=== PATIENT | female | born 1960 | race Caucasian/White ===

== ENCOUNTER → 2022-11-13 11:41 | Outpatient (CLI) | payer BC, SELFPAY ==
--- NOTE | ~2022-11-13 | CT_ITS ---
Non-contrast CT scan of the Abdomen Clinical indication: Umbilical hernia Technique: 2.5 mm axial scans were obtained through the abdomen without intravenous or oral contrast . Dose reduction technique was used on this scan by utilizing automated exposure control and iterativ e reconstruction technique. The dose-length product (DLP) was 755.01 mGy-cm. Findings: Images through the lung bases reveal no abnormalities. There is no evidence of renal or ureteral calculi. The kidneys and the ureters are nondilated. The liver, spleen, pancreas, gallbladder, and adrenals appear normal. There is no aortic aneurysm. Visualized bowel loops are unremarkable. No ascites. There is a large fat-containing umbilical hernia . Impression: Large fat-containing umbilical hernia. Reviewed, dictated and finalized at location . Impression: Large fat-containing umbilical hernia.
== END ==
PROVIDERS: PCP Internal Medicine; Visit Provider Surgery
DX: K42.9 Umbilical hernia without obstruction or gangrene (principal)
CPT/HCPCS: 74150

== ENCOUNTER 2022-11-24 09:23 | Outpatient (CLI) | payer BC, SELFPAY ==
--- NOTE | 2022-11-24 09:28 | ECG_ITS ---
Measurements Intervals [place] Rate: 54 P: 18 DC: 158 QRS: -14 QRSD: 111 T: 4 QT: 446 QTc: 426 Interpretive Statements SINUS BRADYCARDIA LOW QRS VOLTAGE IN PRECORDIAL LEADS [QRS DEFLECTION < 1.0 mV IN CHEST LEADS] CANNOT RULE OUT aNTERIOR MYOCARDIAL INFARCTION, PROBABLY OLD ABNORMAL ECG NO PREVIOUS ECG AVAILABLE FOR COMPARISON Electronically Signed On 11-24-2022 17:00:28 CDT by Drew Benitez M.D.
[2022-11-24 10:13] LABS: Basophils Percent Auto 0.8 % (0.2-1.2); Eosinophils Absolute Auto 0.1 K/mm3 (0-0.3); Eosinophils Percent Auto 2.7 % (0-4.4); Hematocrit 40.1 % (37.0-47.0); Hemoglobin 13.7 g/dL (12.0-15.0); Immature Granulocyte Absolute 0.01 K/mm3 (0.00-0.031); Immature Granulocyte Percent A 0.2 % (0-0.5); Lymphocytes Absolute Auto 1.62 K/mm3 (0.9-3.2); Lymphocytes Percent Auto 33.8 % (18.3-44.2); Mean Corpuscular HGB Conc 34.2 g/dl (32-36); Mean Corpuscular Hemoglobin 32.4 pg (26-34); Mean Corpuscular Volume 94.8 fl (80-100); Mean Platelet Volume 10.3 fl (7.4-10.4); Monocytes Absolute Auto 0.5 K/mm3 (0.1-0.6); Monocytes Percent Auto 9.6 % (2.6-8.5); Neutrophils Absolute Auto 2.5 K/mm3 (1.3-6.7); Neutrophils Percent Auto 52.9 % (45.5-73.1); Platelet Count Result 163 k/mm3 (150-375); Red Blood Count 4.23 M/mm3 (4.2-5.4); White Blood Count 4.8 K/mm3 (4.5-10.0)
[2022-11-24 10:45] LABS: Anion Gap 3 mmol/L (8-16); Blood Urea Nitrogen 13 mg/dL (7-17); Calcium 9.5 mg/dL (8.4-10.2); Carbon Dioxide 34 mmol/L (22-30); Chloride 99 mmol/L (98-107); Estimated Glomerular Filt Rate > 60; Glucose 93 mg/dL (65-110); Potassium 3.3 mmol/L (3.4-5.0); Sodium 136 mmol/L (137-145)
== END 2022-11-24 09:24 | disposition home or self-care (01) ==
PROVIDERS: Anesthesiology; PCP Internal Medicine; Visit Provider Obstetrics & Gynecology
DX: Z01.818 Encounter for other preprocedural examination (principal); I10 Essential (primary) hypertension; R00.1 Bradycardia, unspecified
CPT/HCPCS: 36415; 80048; 85025; 86850; 86900; 86901; 93005

== ENCOUNTER 2022-11-27 01:16 | Day surgery (SDC) | payer BC, SELFPAY ==
--- NOTE | 2022-11-19 15:03 | PC.NURSE ---
Report to the Outpatient Waiting Room, entrance under the green pavilion located off [facility], at time _0600_ on date _11/27/22__. Planned Procedure Time: _0730__. Time changes happen often and if your time is changed the preop area will call you the afternoon before. - You and your visitor will be asked to self-screen and do not enter if you have any COVID symptoms. - Only one visitor is requested with a max of two and NO children visitors are allowed at this time. - The patient visitor may be requested to leave or wait in car when not with patient due to distancing restrictions. - A mask is optional within the hospital at this time. Patients may have clear liquids (water, carbonated beverages, clear teas, apple juice) until 3 hours prior to surgery with a maximum of 20 ounces. Stop by 0430. - No food from midnight until time of surgery - Infants may have breast milk until 4 hours before surgery, formula 6 hours prior to surgery. - Children will be allowed to drink immediately following surgery. If applicable, please bring a bottle or sippy cup to assist with drinking. Juice, water, soda, and popsicles are readily available. For infants on formula, please bring formula the day of surgery. Pacifiers are allowed. Take the following medications with a SIP of water the morning of surgery: __none____ DO NOT STOP ANY OF YOUR OTHER PRESCRIPTION MEDICATIONS PRIOR TO SURGERY ?EXCEPT THE FOLLOWING Medications to discontinue per physician __Vitamins 3 days prior___ Date to take last dose Please no make-up, nail kazakh, hairspray, perfume, deodorant, or body powder the day of surgery. No jewelry (including any body piercings) or valuables the day of surgery, leave them at home. Please take a shower or bath the night before, or the morning of, surgery with an antibacterial soap. Wear comfortable, loose fitting clothing. Children are encouraged to wear pajamas. - Jewelry must be removed prior to entering the operating room. Rings and piercings that are not removed may be cut off. - The hospital will not accept responsibility for valuables. - Please leave all valuables, including medications, at home the day of surgery. If you are going home after surgery, a licensed truss driver helper must drive you home. - NO public transportation without another adult if you receive anesthesia. - We recommend that an adult stay with you for 24 hours following discharge. - We also recommend that you do not drive, make important decision, drink alcoholic beverages, or take any drugs that were not prescribed by your health care provider for at least 24 hours after your discharge time. For Pediatric surgeries, we recommend two adults accompany the child home. Follow any additional instructions given to you from your surgeon. If you or anyone in your household have experienced Covid symptoms in the past week, please notify your surgeon or the nurse liaison at the phone number below for possible testing. Telephone instructions given to __patient__and asked if any additional questions and then verbalized understanding. Patient advised to call surgeon office or pre surgery nurse liaison [phone] if any additional questions.
[2022-11-19 15:15] VITALS: BMI 45.2
--- NOTE | 2022-11-25 12:59 | PM.IMHP ---
H&P: HPI History of Present Illness Date/Time: 11/25/22 12:59 Chief Complaint: Moving pain enlarged uterus. History of invasive breast cancer Narrative: 62-year-old female who is post diagnosis of breast cancer was admitted for robotic hysterectomy bilateral salpingo-oophorectomy secondary to pelvic pain large right ovarian cyst. She has history of invasive ductal carcinoma. And [place] testing is undergoing presently. Her sister is a BRCA1 carrier. She had a polyp in the past and on colonoscopy as well. She does have a large hernia and will and that repaired later. Risks and benefits of this procedure reviewed including not exclusive of , aspiration pneumonia bleeding, transfusion, perforation injury to bowel, bladder, ureters, or other internal organs with need for open laparotomy. She received the ACOG handout entitled hysterectomy as well as the de Beto handout. She had all questions answered. She asked to proceed PMFSH Past Medical History Medical History Anxiety Breast cancer HTN (hypertension) Hyperlipidemia Lipoma of arm removal Rheumatoid arthritis Sleep apnea Surgical History Surgical History H/O lumpectomy ~2000, right breast History of umbilical hernia repair ~2017 Dr. 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 Spiritual care concerns: No Meds Home Medications and Allergies Home Medications Medication Instructions Recorded Confirmed Type calcium carbonate 600 mg calcium 1,200 mg PO HS 07/05/20 11/19/22 History (1,500 mg) tablet (Calcium) cetirizine 10 mg capsule (Zyrtec) 10 mg PO HS 07/05/20 11/19/22 History escitalopram oxalate 20 mg tablet 20 mg PO HS 07/05/20 11/19/22 History (Lexapro) losartan 100 1 tablet PO DAILY 07/05/20 11/19/22 History mg-hydrochlorothiazide 25 mg tablet simvastatin 20 mg tablet 20 mg PO HS 07/05/20 11/19/22 History furosemide 40 mg tablet 40 mg PO QAM PRN fluid retention 08/27/22 11/19/22 History tirzepatide 2.5 mg/0.5 mL 2.5 mg subcut WEEKLY 11/03/22 11/19/22 History subcutaneous pen injector (Mounjaro) Allergies Allergy/AdvReac Type Severity Reaction Status Date / Time Penicillins Allergy Mild Rash Verified 11/19/22 14:46 Exam Const: General: cooperative, healthy appearing, comfortable and obese Orientation/consciousness: oriented to person, oriented to place and oriented to time Resp: Effort & Inspection: normal respiratory effort Cardio: Rate: regular rate Rhythm: regular rhythm Heart sounds: S1 normal heart sound present and S2 normal heart sound present GI: Inspection: normal to inspection GI Palp: Yes abdominal tenderness and Yes Hernia present Percussion: Yes normal to percussion : External Female Exam: normal external appearance Speculum Exam - Vagina: normal appearance of the vagina Speculum Exam - Cervix: normal appearance of the cervix Bimanual exam- vagina & uterus: enlarged Assessment and Plan Assessment and plan (1) Pelvic pain: Code(s): R10.2 - Pelvic and perineal pain Status: Acute (2) Obesity, morbid, BMI 40.0-49.9: Code(s): E66.01 - Morbid (severe) obesity due to excess patrick
--- NOTE | 2022-11-26 15:06 | WPDANESEPPF ---
Anes - Initial Pre Proc Eval Procedure: Operation Date: 11/27/22 07:30 Proposed Procedures p Robotic Assisted Total Vaginal Hysterectomy with Bilateral Salpingo-oophorectomy - Patrick Gongora MD Date/Time: 11/26/22 15:06 Surgeon: Patrick Gongora MD Pre Op Diagnosis: Hx Breast Ca Patient Data Age: 62 Gender: F Height: 1.6 m Weight: 115.9 kg Allergies Allergy/AdvReac Type Severity Reaction Status Date / Time Penicillins Allergy Mild Rash Verified 11/27/22 06:21 Home Medications Medication Instructions Recorded Confirmed Type calcium carbonate 600 mg calcium 1,200 mg PO HS 07/05/20 11/19/22 History (1,500 mg) tablet (Calcium) cetirizine 10 mg capsule (Zyrtec) 10 mg PO HS 07/05/20 11/19/22 History escitalopram oxalate 20 mg tablet 20 mg PO HS 07/05/20 11/19/22 History (Lexapro) losartan 100 1 tablet PO DAILY 07/05/20 11/19/22 History mg-hydrochlorothiazide 25 mg tablet simvastatin 20 mg tablet 20 mg PO HS 07/05/20 11/19/22 History furosemide 40 mg tablet 40 mg PO QAM PRN fluid retention 08/27/22 11/19/22 History tirzepatide 2.5 mg/0.5 mL 2.5 mg subcut WEEKLY 11/03/22 11/19/22 History subcutaneous pen injector (Mounjaro) ECG: Date of Service: 11/24/22 Procedure(s): CA 12 lead EKG Accession Number(s): [id number] cc: ~ ? Measurements Intervals? [place]? Rate: ? 54 ? P:? 18 MO: ? 158? QRS:? -14 QRSD: ? 111? T:? 4 QT: ? 446? QTc:? 426? Interpretive Statements SINUS BRADYCARDIA LOW QRS VOLTAGE IN PRECORDIAL LEADS [QRS DEFLECTION < 1.0 mV IN CHEST LEADS] CANNOT RULE OUT aNTERIOR MYOCARDIAL INFARCTION, PROBABLY OLD ABNORMAL ECG NO PREVIOUS ECG AVAILABLE FOR COMPARISON Electronically Signed On 11-24-2022 17:00:28 CDT by Drew Benitez M.D. Patient hx anesthesia problems: none Family hx anesthesia problems: none Results Review: All pre-operative results and documents have been reviewed as part of the pre-operative evaluation. [facility] Past Medical History Medical History Anxiety Breast cancer HTN (hypertension) Hyperlipidemia Lipoma of arm removal Rheumatoid arthritis Sleep apnea Surgical History Surgical History H/O lumpectomy ~2000, right breast History of umbilical hernia repair ~2017 Dr. 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 Informed Consen
[2022-11-27] VITALS (15 sets, daily range): BP systolic 94–132; BP diastolic 57–82; PULSE 50–85; RESP 12–20; TEMP 36.5–37; O2SAT 96–100; BMI 44.8
[2022-11-27] MEDS: LACTATED RINGERS 1,000 ML 30 ML IV CONT ×2 (06:35→08:50)
[2022-11-27] MEDS: KETOROLAC 15 MG/ML VIAL (*BKC) IV PUSH (06:39)
[2022-11-27] MEDS: ACETAMINOPHEN 500 MG TABLET 1000 MG PO (06:39)
--- NOTE | 2022-11-27 07:14 | WPDHPUPDATE1 ---
History and Physical Update Update Date/Time: 11/27/22 07:14 History and Physical has been reviewed, including an updated exam of the patient. There are NO changes in the patient's condition. Risks, benefits, and alternatives have been discussed and questions answered. Patient agrees to proceed with procedure.
[2022-11-27] MEDS: ceFAZolin 2 GM/D5W 50 ML 2 GM/50 ML BAG IVPB (07:25)
--- NOTE | 2022-11-27 08:37 | W.PM.PROC2 ---
Procedure Note - Detailed Date of Procedure 11/27/22 Pre-op Diagnosis Hx Breast Ca Enlarged uterus and pelvic pain Post-op Diagnosis Same Procedure Performed robotic total vaginal hysterectomy and salpingo-oophorectomy Surgeon Patrick Gongora MD Anesthesia General Indications this is a 62-year-old female with history of breast cancer in a large right ovarian cyst with enlarged to the uterus. Findings Markedly enlarged uterus. A large benign-appearing right ovarian cyst. Description of Procedure Patient was prepped draped in normal sterile fashion placed in dorsal lithotomy position. Under excellent general trach anesthesia weighted speculum placed in posterior fornix vagina. Anterior lip of the cervix grasped with single-tooth tenaculum the uterus sounded to 9cm. Serial dilatation with fragmented dilators performed followed passes of the 8. FIDELIA and the 3. Cold cup. Next the 16 Fijian catheter was placed in bladder draining clear urine. The weighted speculum and single-tooth were removed. The gloves were changed. Supraumbilical incision made well above the large ventral hernia. The Veress needle passed in the abdomen the abdomen filled with CO2 gas [id number]. The 8mm trocar advanced in the abdomen. Downside visualized no injury seen PP. Patient placed in Trendelenburg and right left lateral quadrant incision made. 8Mm trocars advanced under direct visualization. Right upper quadrant incision made the 8mm trocar advanced under direct visualization assuring no injury. The robot was docked. Attention was turned to the licensed mental health counselor. The left round ligament grasped, burned, cut. Anteriorly a bladder flap was formed by sharply dissecting the peritoneum and reflecting the bladder caudally away from the cervix and uterus the opposite round ligament which was clamped, burned, cut. Next the infundibulopelvic structure on the left was skeletonized to remove the ovary and tube. This was clamped, burned, cut and brought to level of previously cut round ligament. In like fashion removing right adnexa the infundibulopelvic structure was skeletonized we had the large right ovary this was clamped, burned, cut brought to level previously cut round ligament. Cardinal broad ligaments on the left were serially skeletonized clamping burning cutting hugging the cervix and uterus until the large tortuous uterine vessels could be seen on left. These were individually clamped, burned, cut. In like fashion the cardinal broad ligaments on right were serially skeletonized clamping burning cutting and riding along the cervix and uterus until the uterine vessels could be seen on the right. These were individually clamped, burned, cut. Next the colpotomy incision was made in the cervix uterus ovaries and tubes removed through the vagina. The vagina then closed with continuous running 0V lock from lateral edge to lateral edge back to the midline. Irrigation undertaken to clear and blood loss estimated to be 25cc her last. The robot was undocked. The gas removed from the abdomen. The trocars removed. The incisions closed with 4 Monocryl and glue. the instruments removed from the vagina and the patient was awakened. The patient went to recovery in satisfactory condition. All sponge, needle, instrument counts were correct. There were no noted immediate complications Estimated Blood Loss 25 Drains No Packing No Pathology Yes Complications No immediate complications Condition Stable Disposition PACU
--- NOTE | 2022-11-27 08:41 | PM.DS ---
DS: Admitting Diagnosis Discharge Date Admitting Diagnosis symptomatic uterine fibroids large right ovarian cyst DS: Discharge Diagnosis Discharge Diagnosis (1) Ovarian cyst: Code(s): N83.209 - Unspecified ovarian cyst, unspecified side Status: Acute (2) Enlarged uterus: Code(s): N85.2 - Hypertrophy of uterus Status: Acute (3) Pelvic pain: Code(s): R10.2 - Pelvic and perineal pain Status: Acute DS: Summary Hospital Course Reason for hospitalization: patient was admitted for robotic hysterectomy salpingo-oophorectomy Hospital Course: patient had an unremarkable procedure on 10/27 3. Her hospital course unremarkable. She remained afebrile. She was up, voiding without difficulty ambulating eating regular without complaints Time Spent with Patient Time attestation: Total time spent providing and/or coordinating discharge services: Exam Const: General: cooperative, healthy appearing and comfortable Nutritional Appearance: obese Orientation/consciousness: oriented to person, oriented to place and oriented to time HENMT: Head: normal to inspection Resp: Effort & Inspection: normal respiratory effort Cardio: Rate: regular rate Rhythm: regular rhythm Heart sounds: S1 normal heart sound present and S2 normal heart sound present GI: Inspection: normal to inspection, incision ( incisions were clean dry and intact. Large hernia noted) and Pannus present DS: Data Data Completed and Pending Pending studies at discharge: Pending at discharge 11/27/22 08:38 Surgical [PTH] Routine Discharge Plan Discharge Patient Disposition: Home, Self-Care Stand Alone Forms: General Discharge Instructions Follow-up/Referrals: Patrick Villarreal MD [Physician] - Discharge Medications: New hydrocodone-acetaminophen 5-325 mg tablet 1 tablet PO Q4H PRN (Reason: pain) Qty: 30 0RF No Action calcium carbonate [Calcium 600] 600 mg calcium (1,500 mg) tablet 1,200 mg PO HS escitalopram oxalate [Lexapro] 20 mg tablet 20 mg PO HS simvastatin 20 mg tablet 20 mg PO HS Zyrtec 10 mg capsule 10 mg PO HS losartan-hydrochlorothiazide 100-25 mg tablet 1 tablet PO DAILY furosemide 40 mg tablet 40 mg PO QAM PRN (Reason: fluid retention) Mounjaro 2.5 mg/0.5 mL pen injector 2.5 mg subcut WEEKLY
[2022-11-27] MEDS: fentaNYL CITRATE INJ (*CRX) 100 MCG/2 ML VIAL 25 MCG IV PUSH ×2 (09:26→09:28)
[2022-11-27] MEDS: DEXTROSE 5%/LACTATED RINGERS 1,000 ML 125 ML IV CONT (10:45)
--- NOTE | 2022-11-27 11:02 | ADMGEN ---
1030-This patient, Paty Shine, was admitted to OB 2nd Floor Room 288-00. Patient/family oriented to hospital policies and general routines including ID bracelet, bed and alarms, visiting hours, pain management, procedures, bathroom and other care routines, personal items, smoking policy, room service/diet, and visiting hours. Information on how to activate the Rapid Response Team has been discussed. Patient/Family are encouraged to report perceived risks to care and to ask questions if they do not understand what they are told or what they should do.
[2022-11-27] MEDS: KETOROLAC 30 MG/ML VIAL (*BKC) IV PUSH (16:41)
[2022-11-27] MEDS: DOCUSATE SODIUM 100 MG CAPSULE PO (16:42)
[2022-11-27] MEDS: SIMETHICONE 80 MG TAB.CHEW PO (16:48)
--- NOTE | 2022-11-27 21:06 | PCRCNOTE ---
attempted to set up pt with her home bipap unit but was missing a piece to connect to her mask. Pt stated that she must have left it at home. Per Pt, she is fine not wearing her bipap for one night.
[2022-11-28 04:00] VITALS: BP 120/40; PULSE 59; RESP 16; TEMP 36.6
[2022-11-28 06:06] LABS: Basophils Percent Auto 0.2 % (0.2-1.2); Eosinophils Percent Auto 0.6 % (0-4.4); Hematocrit 34.2 % (37.0-47.0); Hemoglobin 11.9 g/dL (12.0-15.0); Immature Granulocyte Absolute 0.02 K/mm3 (0.00-0.031); Immature Granulocyte Percent A 0.3 % (0-0.5); Lymphocytes Absolute Auto 1.45 K/mm3 (0.9-3.2); Mean Corpuscular HGB Conc 34.8 g/dl (32-36); Mean Corpuscular Hemoglobin 32.1 pg (26-34); Mean Corpuscular Volume 92.2 fl (80-100); Monocytes Absolute Auto 0.4 K/mm3 (0.1-0.6); Monocytes Percent Auto 6.2 % (2.6-8.5); Neutrophils Absolute Auto 4.4 K/mm3 (1.3-6.7); Neutrophils Percent Auto 69.7 % (45.5-73.1); Platelet Count Result 154 k/mm3 (150-375); Red Blood Count 3.71 M/mm3 (4.2-5.4); Red Cell Distribution Width 13.6 % (11.5-14.5); White Blood Count 6.3 K/mm3 (4.5-10.0)
[2022-11-28 08:10] VITALS: BP 118/60; PULSE 58; RESP 12; TEMP 36.6; O2SAT 96
--- NOTE | 2022-11-28 08:53 | PM.GYNPNOP ---
PROFESSOR OF INDUSTRIAL TECHNOLOGY - A/P Postoperative Procedures: Procedures Operation Date: 11/27/22 07:30 Actual Procedure Side Surgeon p Robotic Assisted Total Vaginal Hysterectomy with Bilateral Salpingo-oophorectomy Bilateral Patrick Gongora MD Postoperative day: 1 Postoperative status: doing well Postoperative plan: routine post-op care, see orders, advance diet, voiding trials and discharge Time Spent With Patient Time: Total time spent is greater than 50% in coordination of care (as documented) at patient's floor/unit and/or counseling patient: Time with patient: less than 15 minutes PROFESSOR OF INDUSTRIAL TECHNOLOGY- PN:Subj Post-Op Subjective Date/time seen: 11/28/22 08:53 Subjective: patient reports feeling better, patient has no complaints, patient desires discharge, pain is well controlled and patient is tolerating oral intake Exam Const: General: cooperative, healthy appearing and comfortable Nutritional Appearance: overweight Orientation/consciousness: oriented to person, oriented to place and oriented to time HENMT: Head: normal to inspection Resp: Effort & Inspection: normal respiratory effort Cardio: Rate: regular rate Rhythm: regular rhythm Heart sounds: S1 normal heart sound present and S2 normal heart sound present GI: Inspection: normal to inspection and incision (cdi) PROFESSOR OF INDUSTRIAL TECHNOLOGY - PN: Obj Data Vital Signs Vital Signs: Vital Signs - 24 hr 11/27/22 09:00 11/27/22 09:15 11/27/22 09:30 Temperature Pulse Rate 63 55 L 55 L Respiratory Rate 20 18 16 Blood Pressure 119/71 119/75 94/64 L Pulse Oximetry 97 97 97 Oxygen Delivery Room Air Room Air Nasal Cannula Oxygen Flow Rate 2 11/27/22 09:45 11/27/22 10:00 11/27/22 10:15 Temperature Pulse Rate 50 L 55 L 55 L Respiratory Rate 16 16 18 Blood Pressure 94/62 L 101/62 109/65 Pulse Oximetry 96 99 100 Oxygen Delivery Nasal Cannula Nasal Cannula Nasal Cannula Oxygen Flow Rate 2 2 2 11/27/22 10:24 11/27/22 10:40 11/27/22 11:00 Temperature 98.4 F Pulse Rate 50 L 55 L 55 L Respiratory Rate 12 16 16 Blood Pressure 112/71 119/67 Pulse Oximetry 100 100 100 Oxygen Delivery Nasal Cannula Nasal Cannula Oxygen Flow Rate 2 2 11/27/22 13:30 11/27/22 14:11 11/27/22 14:11 Temperature 98.2 F Pulse Rate 55 L 70 70 Respiratory Rate 16 16 16 Blood Pressure 115/57 L Pulse Oximetry 100 99 99 Oxygen Delivery Nasal Cannula Room Air Oxygen Flow Rate 1 11/27/22 16:58 11/27/22 18:35 11/28/22 04:00 Temperature 98.6 F 97.9 F Pulse Rate 75 59 L Respiratory Rate 16 16 Blood Pressure 122/65 120/40 L Pulse Oximetry 97 98 Oxygen Delivery Room Air Oxygen Flow Rate 11/28/22 08:10 Temperature 98 F Pulse Rate 58 L Respiratory Rate 12 Blood Pressure 118/60 Pulse Oximetry 96 Oxygen Delivery Oxygen Flow Rate Intake/Output Intake/Output: Intake & Output 11/25/22 11/26/22 11/27/22 11/28/22 23:59 23:59 23:59 23:59 Intake Total 3701 500 Output Total 1350 1000 Balance 2351 -500 Meds/Results Medications: Active Medications Generic Name Dose Route Start Last Admin Trade Name Freq PRN Reason Stop Dose Admin Hydrocodone Bitart/Acetaminophen 1 tab 11/27/22 10:27 Hydrocodone/Acetaminophen (*Crx) 5-325 Mg Tablet PO Q3H PRN Pain Rated 5 or Less Hydrocodone Bitart/Acetaminophen 1 tab 11/27/22 10:27 Hydrocodone/Acetaminophen (*Crx) 10-325 Mg Tablet PO Q3H PRN Pain Rated 6 or Greater Docusate Sodium 100 mg 11/27/22 10:27 11/27/22 16:42 Docusate Sodium 100 Mg Capsule PO 100 mg BID KEL Administration Enoxaparin Sodium 40 mg 11/27/22 10:27 11/27/22 11:00 Enoxaparin 40 Mg/0.4 Ml Syringe SUB-Q Not Given DAILY KEL Ibuprofen 600 mg 11/27/22 10:27 Ibuprofen 600 Mg Tablet PO Q6H PRN Cramping Ketorolac Tromethamine 30 mg 11/27/22 10:27 11/27/22 16:41 Ketorolac 30 Mg/Ml Vial (*Bkc) IV PUSH 12/02/22 10:26 30 mg Q6H PRN Administration Pain Rated 4-6 Naloxone HCl 0.1 mg
--- NOTE | 2022-11-28 09:01 | WPDANESPN ---
Anes - Prog Note Post-Op Date/Time: 11/28/22 09:01 Cardiovascular status: normal Respiratory status: normal Airway patency: baseline Mental status: baseline Post-Op hydration status: normal Vital Signs: Last Vital Signs Temp 98 F 11/28/22 08:10 Pulse 58 L 11/28/22 08:10 Resp 12 11/28/22 08:10 BP 118/60 11/28/22 08:10 Pulse Ox 96 11/28/22 08:10 O2 Del Method Room Air 11/27/22 16:58 O2 Flow Rate 1 11/27/22 13:30 Pain Score (VAS): 0 I/O: Intake & Output 11/27/22 11/28/22 11/28/22 23:59 07:59 15:59 Intake Total 3151 500 Output Total 1150 1000 Balance 2000 - Laboratory Tests 11/28/22 04:08 11/28/22 04:08 WBC 6.3 RBC 3.71 L Hgb 11.9 L Hct 34.2 L MCV 92.2 MCH 32.1 MCHC 34.8 RDW 13.6 Plt Count 154 MPV 11.0 H Immature Gran % (Auto) 0.3 Neut % (Auto) 69.7 Lymph % (Auto) 23.0 [place] % (Auto) 6.2 Eos % (Auto) 0.6 Baso % (Auto) 0.2 Lymph # (Auto) 1.45 [place] # (Auto) 0.4 Eos # (Auto) 0.0 Baso # (Auto) 0.0 Abs Immat Gran (auto) 0.02 Absolute Neuts (auto) 4.4 Absolute Nucleated RBC 0.0 Nucleated RBC % 0.0 Post-procedural complaints: none Patient Feedback: Patient satisfied with anesthetic care.
[2022-11-28] MEDS: DOCUSATE SODIUM 100 MG CAPSULE PO (10:26)
[2022-11-28] MEDS: ENOXAPARIN 40 MG/0.4 ML SYRINGE SUB-Q (10:26)
== END 2022-11-28 11:42 | disposition home or self-care (01) ==
LOC: ANHSURGERY 07:15 → ANHOB2 10:30
PROVIDERS: PCP Internal Medicine; Visit Provider Obstetrics & Gynecology
PROC: (CPT 58552; principal; 2022-11-27 07:30)
DX: D27.0 Benign neoplasm of right ovary (principal); N84.1 Polyp of cervix uteri; R10.2 Pelvic and perineal pain; K42.9 Umbilical hernia without obstruction or gangrene; I10 Essential (primary) hypertension; E78.5 Hyperlipidemia, unspecified; M06.9 Rheumatoid arthritis, unspecified; G47.30 Sleep apnea, unspecified; F41.9 Anxiety disorder, unspecified; Z85.3 Personal history of malignant neoplasm of breast; E66.01 Morbid (severe) obesity due to excess calories; Z68.41 Body mass index [BMI] 40.0-44.9, adult
CPT/HCPCS: 58552; S2900; 36415; 85025; 88307; 99199; A9270; J0690; J1100; J1170; J1650; J1885; J2250; J2405; J2704; J3010; J7030; J7120; J7121

== ENCOUNTER → 2023-01-22 15:19 | Outpatient (CLI) | payer BC, SELFPAY ==
--- NOTE | ~2023-01-22 | XR_ITS ---
XR hip RT min 3V w AP pelvis DATE: 01/22/2023 15:29 INDICATION: Right groin pain for 4 months. No injury. TECHNIQUE: AP pelvis. AP and lateral views of right hip COMPARISON: None FINDINGS: There is multilevel moderate degenerative disc disease of the lumbar spine including loss o f disc space height, degenerative spurring. 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 The sacroiliac joints are intact. No pelvic fracture or bone destruction is detected. Hip joint spaces are symmetric and relatively preserved. No fracture or dislocation, avascular necros is or bone destruction of the right hip is detected. IMPRESSION: Multilevel moderate degenerative disease of the lumbar spine Osteitis pubis Reviewed, dictated and finalized at location L.
== END ==
PROVIDERS: PCP Physician Assistant; Visit Provider Physician Assistant
DX: R10.9 Unspecified abdominal pain (principal); M51.36 Other intervertebral disc degeneration, lumbar region
CPT/HCPCS: 73502

== ENCOUNTER 2023-03-20 09:00 | Outpatient (RCR) | payer BC, SELFPAY ==
--- NOTE | 2023-02-06 09:41 | OPREHPOC ---
Outpatient Therapy Plan of Care This is a Multidisciplinary Plan of Care that may contain components documented by all disciplines (PT, OT, and ST.) PT Problem 1 PT Problem #1 Knowledge Deficit PT Goal 1 Goal 1. Patient will perform independent HEP Target Visit 6 PT Problem 2 PT Problem #2 Pain PT Goal 1 Goal 1. Patient will report pain no higher than 2/10 with ADL's Target Visit 6 PT Goal 2 Goal 2. Patient will report no pain with palpation of pubic symphysis or pelvic floor Target Visit 6 PT Problem 3 PT Problem #3 Impaired Strength PT Goal 1 Goal 1. Improve hip strength to 5/5 for mike abduction and extension to support pubic symphysis with mobility Target Visit 6
--- NOTE | 2023-02-06 09:41 | PTOPEVAL1 ---
Assessment and note entered by Sasha Brown DPT Evaluation Information Assessment Status Evaluation Subjective Information Pt reports she has been diagnosed with osteitis pubis by x-ray. Pain started several months ago, after twisting while picking up a rug. Highest pain recently 6-7/10 and lowest 0/10. Denies n/t. Pain increases with walking even a short distance, stairs, getting out of a chair. Urinates 5 times a day and 1-2 times a night. Denies pain with urination. Urine leakage very infrequently. BM 3-4 times a week, pain from hemorrhoids. Has had minor pain with intercourse at times. Pt has been 2 times, 1 delivery (vaginal with minor tearing). Pt was diagnosed with breast cancer September 2022- currently getting radiation and had a hysterectomy in November 2022 due to cysts and fibroids. Does have an abdominal hernia, will be repaired end of April. Previously did not have pelvic pain with walking etc. Reported Pain Level Pain Score 1: Self Report Assessment PT Clinical Summary The patient is presenting to skilled therapy with a pelvic pain and reports a diagnosis of osteitis pubis. She demonstrates decreased core and hip strength and mild pain with palpation of pelvic floor. These impairments are contributing to her pain with walking and other ADL's. She will benefit from therapy to reduce pain and return to prior level. Plan of Care Interventions Gait Training,Hot Pack/Cold Pack,Manual Therapy, Neuro Re-education,Patient/Caregiver Education, Therapeutic Activities,Therapeutic Exercise PT Services Indicated Yes Treatment Frequency and 1 time a week for 6 weeks Duration These treatments will address the objective and functional deficits as defined above. The patient will be advanced safely and appropriately in order for the patient to progress towards his/her prior level of function. Additional exercises will be introduced and as well as a comprehensive home exercise program upon discharge, if needed, ?to ensure carryover of functional gains achieved in the clinic. This treatment plan has been reviewed and agreement upon by the patient.
--- NOTE | 2023-02-13 11:41 | PCPTNOTE ---
Patient called to cancel appointment due to a in the family.
--- NOTE | 2023-03-20 09:25 | OPREHPOC ---
Outpatient Therapy Plan of Care This is a Multidisciplinary Plan of Care that may contain components documented by all disciplines (PT, OT, and ST.) PT Problem 1 PT Problem #1 Knowledge Deficit PT Goal 1 Goal 1. Patient will perform independent HEP Target Visit 6 Progress Met PT Problem 2 PT Problem #2 Pain PT Goal 1 Goal 1. Patient will report pain no higher than 2/10 with ADL's Target Visit 6 Progress Met PT Goal 2 Goal 2. Patient will report no pain with palpation of pubic symphysis or pelvic floor Target Visit 6 Progress Partially Met PT Problem 3 PT Problem #3 Impaired Strength PT Goal 1 Goal 1. Improve hip strength to 5/5 for mike abduction and extension to support pubic symphysis with mobility Target Visit 6 Progress Partially Met Comment improved to 4+/5 abduction
--- NOTE | 2023-03-20 09:26 | PTOPDC ---
Assessment and note entered by Sasha Brown DPT Evaluation Information Assessment Status Discharge Subjective Information Highest pain in last week maybe 1/10 . Does not feel limited with ADL's, is cooking, cleaning, exercising. Has not done a lot of lifting yet, more due to her hernia and upcoming repair. Feels confident with discharge at this point. Reported Pain Level Pain Score 0: Self Report Assessment PT Clinical Summary The patient has made excellent progress in therapy and reports greatly decreased pain to 1/10 at the highest. She is active with ADL's, cooking, cleaning, and exercising. She has not yet done many lifting activities due to hernia (repair scheduled in April). Due to her progress, plan for discharge at this time. She has been educated to continue her HEP and follow up with MD and/or PT as needed. Plan of Care PT Services Indicated No
== END 2023-03-20 14:22 | disposition home or self-care (01) ==
LOC: ANHPT 09:00
PROVIDERS: PCP Physician Assistant; Visit Provider Physician Assistant
DX: R10.2 Pelvic and perineal pain (principal)
CPT/HCPCS: 97110; 97112; 97162

== ENCOUNTER 2023-05-06 13:22 | Outpatient (CLI) | payer BC, SELFPAY ==
[2023-05-06 15:12] LABS: Anion Gap 3 mmol/L (8-16); Blood Urea Nitrogen 16 mg/dL (7-17); Calcium 9.5 mg/dL (8.4-10.2); Carbon Dioxide 29 mmol/L (22-30); Chloride 101 mmol/L (98-107); Estimated Glomerular Filt Rate 56; Glucose 104 mg/dL (65-110); Potassium 3.7 mmol/L (3.4-5.0); Sodium 133 mmol/L (137-145)
== END 2023-05-06 13:23 | disposition home or self-care (01) ==
LOC: ANHSURGERY 13:26
PROVIDERS: Anesthesiology; PCP Family Medicine; Visit Provider Surgery
DX: K42.9 Umbilical hernia without obstruction or gangrene (principal); Z79.899 Other long term (current) drug therapy; Z01.818 Encounter for other preprocedural examination
CPT/HCPCS: 36415; 80048; 86850; 86900; 86901

== ENCOUNTER 2023-05-12 02:25 | Day surgery (SDC) | payer BC, SELFPAY ==
[2023-05-05 12:39] VITALS: BMI 44.2
--- NOTE | 2023-05-05 12:45 | PC.NURSE ---
Report to the Outpatient Waiting Room, entrance under the green pavilion located off [facility], at time 6:00 on date 05/12/23. Planned Procedure Time: 7:30. Time changes happen often and if your time is changed the preop area will call you the afternoon before. - You and your visitor will be asked to self-screen and do not enter if you have any COVID symptoms. - A mask is optional within the hospital at this time. Patients may have clear liquids (water, carbonated beverages, clear teas, apple juice) until 3 hours prior to surgery (4:30) with a maximum of 20 ounces. - No food from midnight until time of surgery Take the following medications with a SIP of water the morning of surgery: NONE DO NOT STOP ANY OF YOUR OTHER PRESCRIPTION MEDICATIONS PRIOR TO SURGERY ?EXCEPT THE FOLLOWING Medications to discontinue per physician: VITAMINS/SUPPLEMENTS Date to take last dose: 05/08/23 Please no make-up, nail armenian, hairspray, perfume, deodorant, or body powder the day of surgery. No jewelry (including any body piercings) or valuables the day of surgery, leave them at home. Please take a shower or bath the night before, or the morning of, surgery with an antibacterial soap (HIBICLENS). Wear comfortable, loose fitting clothing. - Jewelry must be removed prior to entering the operating room. Rings and piercings that are not removed may be cut off. - The hospital will not accept responsibility for valuables. - Please leave all valuables, including medications, at home the day of surgery. If you are going home after surgery, a licensed jeep driver must drive you home. - NO public transportation without another adult if you receive anesthesia. - We recommend that an adult stay with you for 24 hours following discharge. - We also recommend that you do not drive, make important decision, drink alcoholic beverages, or take any drugs that were not prescribed by your health care provider for at least 24 hours after your discharge time. Follow any additional instructions given to you from your surgeon. If you or anyone in your household have experienced Covid symptoms in the past week, please notify your surgeon or the nurse liaison at the phone number below for possible testing. Telephone instructions given to PT - DIANE FRANKLIN and asked if any additional questions and then verbalized understanding. Patient advised to call surgeon office or pre surgery nurse liaison [phone] if any additional questions.
[2023-05-12] VITALS (16 sets, daily range): BP systolic 92–130; BP diastolic 47–81; PULSE 54–86; RESP 14–20; TEMP 36.4–37; O2SAT 92–100
[2023-05-12] MEDS: LACTATED RINGERS 1,000 ML 30 ML IV CONT ×2 (06:44→10:07)
[2023-05-12] MEDS: KETOROLAC 15 MG/ML VIAL (*BKC) IV PUSH (06:44)
[2023-05-12] MEDS: ACETAMINOPHEN 500 MG TABLET 1000 MG PO ×4 (06:44→22:48)
--- NOTE | 2023-05-12 06:49 | WPDANESEPPF ---
Anes - Initial Pre Proc Eval Procedure: Operation Date: 05/12/23 07:30 Proposed Procedures p Laparoscopic Recurrent Umbilical Hernia Repair with Mesh, Davinci Assisted, Laparoscopic Removal of Old Mesh - Elver Hurtado DO Date/Time: 05/12/23 06:49 Surgeon: Elver Hurtado DO Pre Op Diagnosis: recurrent umbilical hernia Patient Data Age: 62 Gender: F Height: 1.6 m Weight: 113.4 kg Allergies Allergy/AdvReac Type Severity Reaction Status Date / Time Penicillins Allergy Mild Rash Verified 05/05/23 12:37 Home Medications Medication Instructions Recorded Confirmed Type calcium carbonate 600 mg calcium 1,200 mg PO HS 07/05/20 05/05/23 History (1,500 mg) tablet (Calcium) cetirizine 10 mg capsule (Zyrtec) 10 mg PO HS 07/05/20 05/05/23 History escitalopram oxalate 20 mg tablet 20 mg PO HS 07/05/20 05/05/23 History (Lexapro) losartan 100 1 tablet PO DAILY 07/05/20 05/05/23 History mg-hydrochlorothiazide 25 mg tablet simvastatin 20 mg tablet 20 mg PO HS 07/05/20 05/05/23 History furosemide 40 mg tablet 40 mg PO QAM PRN fluid retention 08/27/22 05/05/23 History letrozole 2.5 mg tablet 2.5 mg PO DAILY 03/02/23 05/05/23 History naproxen 500 mg tablet 500 mg PO BID #60 tabs 03/23/23 05/05/23 Rx cholecalciferol (vitamin D3) 25 25 mcg PO DAILY 05/05/23 05/05/23 History mcg (1,000 unit) tablet (Vitamin D3) Patient hx anesthesia problems: none Family hx anesthesia problems: none Results Review: All pre-operative results and documents have been reviewed as part of the pre-operative evaluation. [facility] Past Medical History Medical History Anxiety Breast cancer HTN (hypertension) Hyperlipidemia Lipoma of arm removal Rheumatoid arthritis Sleep apnea Surgical History Surgical History H/O lumpectomy ~2000, right breast H/O: hysterectomy History of ventral hernia repair 2014 - Repair of ventral hernia with mesh with bilateral fascial release (component separation) by Dr. 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 Informed Consent: The patient's anesthetic plan and its attendant risks and benefits were discussed with the patient/family/POA. Questions were solicited and answers provided to the satisfaction of the patient/family/POA.
--- NOTE | 2023-05-12 07:11 | WPDHPUPDATE1 ---
History and Physical Update Update Date/Time: 05/12/23 07:11 History and Physical has been reviewed, including an updated exam of the patient. There are NO changes in the patient's condition. Risks, benefits, and alternatives have been discussed and questions answered. Patient agrees to proceed with procedure.
--- NOTE | 2023-05-12 07:12 | PM.IMHP ---
H&P: HPI History of Present Illness Date/Time: 05/12/23 07:12 Chief Complaint: recurrent umbilical hernia Narrative: 62 yo woman presents for recurrent umbilical hernia repair. She had a hernia repair in 2015 and now has evidence of a recurrence. She reports no changes since last seen in office. Review of Systems Review of Systems: All systems reviewed & are unremarkable except as noted in HPI and below Constitutional: Constitutional: Denies chills, Denies fever(s), Denies headache(s) and Denies weight loss Eyes: Eyes: Denies change in vision ENT: Denies dizziness, Denies headache(s), Denies neck mass and Denies throat swelling Cardiovascular: Cardiovascular: Denies chest pain, Denies lightheadedness and Denies dyspnea Respiratory: Respiratory: Denies cough, Denies dyspnea and Denies wheezing Gastrointestinal: Gastrointestinal: Denies abdominal pain, Denies change in bowel habits, Denies nausea and Denies vomiting Genitourinary: Genitourinary: Denies hematuria and Denies dysuria Musculoskeletal: Musculoskeletal: Reports as per HPI Integumentary/Breasts: Skin/Breast: Reports as per HPI Neurologic: Denies dizziness and Denies headache(s) Allergic/Immunologic: Allergic/Immunologic: Denies throat swelling and Denies wheezing PMFSH Past Medical History Medical History Anxiety Breast cancer HTN (hypertension) Hyperlipidemia Lipoma of arm removal Rheumatoid arthritis Sleep apnea Surgical History Surgical History H/O lumpectomy ~2000, right breast H/O: hysterectomy History of ventral hernia repair 2015 - Repair of ventral hernia with mesh with bilateral fascial release (component separation) by Dr. 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 Spiritual care concerns: No Meds Home Medications and Allergies Home Medications Medication Instructions Recorded Confirmed Type calcium carbonate 600 mg calcium 1,200 mg PO HS 07/05/20 05/12/23 History (1,500 mg) tablet (Calcium) cetirizine 10 mg capsule (Zyrtec) 10 mg PO HS 07/05/20 05/12/23 History escitalopram oxalate 20 mg tablet 20 mg PO HS 07/05/20 05/12/23 History (Lexapro) losartan 100 1 tablet PO DAILY 07/05/20 05/12/23 History mg-hydrochlorothiazide 25 mg tablet simvastatin 20 mg tablet 20 mg PO HS 07/05/20 05/12/23 History furosemide 40 mg tablet 40 mg PO QAM PRN fluid retention 08/27/22 05/12/23 History letrozole 2.5 mg tablet 2.5 mg PO DAILY 03/02/23 05/12/23 History naproxen 500 mg tablet 500 mg PO BID #60 tabs 03/23/23 05/12/23 Rx cholecalciferol (vitamin D3) 25 25 mcg PO DAILY 05/05/23 05/12/23 History mcg (1,000 unit) tablet (Vitamin D3) Allergies Allergy/AdvReac Type Severity Reaction Status Date / Time Penicillins Allergy Mild Rash Verified 05/12/23 06:52 Vital Signs Vital Signs - 24 hr 05/12/23 06:23 Temperature 36.4 C L Pulse Rate 59 L Respiratory Rate 16 Blood Pressure 130/67 Pulse Oximetry 100 Oxygen Delivery Room Air Exam Const: General: no acute distress and alert Orientation/consciousness: patient oriented x3 HENMT: Head: normocephalic and atraumatic Ears: hearing grossly normal bilaterally Face/Nose/Sinus: Nor
[2023-05-12] MEDS: ceFAZolin 2 GM/D5W 50 ML 2 GM/50 ML BAG IVPB (07:28)
[2023-05-12] MEDS: BUPivacaine HCL 0.5% PF 30 ML VIAL INFILTRATE (08:11)
--- NOTE | 2023-05-12 09:57 | W.PM.PROC2 ---
Procedure Note - Detailed Date of Procedure 05/12/23 Pre-op Diagnosis recurrent umbilical hernia Post-op Diagnosis Same (Incarcerated recurrent 4 cm umbilical hernia) Procedure Performed 1. Laparoscopic incarcerated recurrent 4 cm umbilical hernia repair with mesh, da Beto assisted 2. Laparoscopic removal of old mesh foreign body Surgeon Elver Hurtado, DO Anesthesia General and Local (0.5% bupivacaine with epinephrine) Indications This is a 62-year-old woman who presented with a recurrent umbilical bulge that had been present over the past couple years. She has a history of umbilical hernia repair with mesh in 2017. She was found to have a large recurrent umbilical hernia containing fat. A CT was obtained which showed evidence of about a 4 cm recurrent umbilical hernia. Discussions were made with the patient about treatment options and decision was made to proceed with robotic assisted laparoscopic recurrent umbilical hernia repair mesh and laparoscopic removal of mesh. Findings The patient was found to have a recurrent incarcerated umbilical hernia. The hernia was incarcerated with omentum. Once the incarcerated contents were reduced, I was then able to excise the hernia sac and old mesh. The mesh was completely excised and sent to the lab for pathology. The hernia sac was also excised and sent for pathology. The hernia defect measured 4 cm. Robotic intraperitoneal onlay mesh technique was utilized for repair. The fascia was reapproximated using #1 Stratafix running absorbable suture. A 20 cm x [address] mesh was then placed and secured to the abdominal wall. Description of Procedure Procedure as well as risks, benefits, and alternatives were discussed with the patient. Written consent was obtained and placed in chart prior to procedure. Patient was brought back to surgical suite. She was placed supine on operating table. Time-out was done to confirm patient and procedure. She was then intubated by the anesthesia department. A bump was placed under her left hip, and the bed was flexed slightly to extend the space between her costal margin and iliac crest. Her abdomen was prepped and draped in sterile fashion using chlorhexidine prep. A 5 millimeter incision was made in the left upper quadrant, and a 5 millimeter Optiview trocar was advanced through the abdominal layers under direct visualization. Once inside the abdominal cavity, carbon dioxide insufflation was used to create a pneumoperitoneum. Her abdomen was inspected. An 8 millimeter incision was made in the left lower quadrant, and an 8 millimeter robotic trocar was placed under direct visualization. Another 8 millimeter incision was made in the left lateral abdomen, and an 8 millimeter robotic trocar was placed under direct visualization. 0.5% bupivacaine with epinephrine was infiltrated around each port site. The 5 millimeter port was removed, and an 8 mm robotic trocar was placed under direct visualization. The robotic arms were brought up to the patient's bedside and secured to the ports. The camera and instruments were inserted, and I then moved over to the robotic console and took control of the camera and instruments. After careful thorough inspection of the abdominal cavity, I began my dissection at the hernia. The incarcerated contents were carefully reduced using blunt dissection and scissors with electrocautery. The old mesh was then carefully excised along with the hernia sac using scissors with electrocautery. I then measured the hernia size. The hernia measured 4 cm. The fascia was closed using an 1-Stratafix running suture in a vertical fashion. A Ventralight ST 20 cm x 15 cm was then placed within the abdominal cavity. This was oriented vertically with the mesh centered on the hernia defect. The mesh was then secured at the 4 corners and center of the mesh using 3-0 Vicryl simple interrupted sutures. The perimeter of the mesh was then approximated to t
[2023-05-12] MEDS: fentaNYL CITRATE INJ (*CRX) 100 MCG/2 ML VIAL 25 MCG IV PUSH ×3 (10:48→11:23)
--- NOTE | 2023-05-12 12:34 | PC.NURSE ---
This patient, Paty Shine, was admitted to Medical Room 341-01. Patient/family oriented to hospital policies and general routines including ID bracelet, bed and alarms, visiting hours, pain management, procedures, bathroom and other care routines, personal items, smoking policy, room service/diet, and visiting hours. Information on how to activate the Rapid Response Team has been discussed. Patient/Family are encouraged to report perceived risks to care and to ask questions if they do not understand what they are told or what they should do.
[2023-05-12] MEDS: LACTATED RINGERS 1,000 ML 100 ML IV CONT (12:39)
[2023-05-12] MEDS: oxyCODONE HCL (*CRX) 5 MG TAB IR PO (12:43)
[2023-05-12] MEDS: LORATADINE 10 MG TABLET PO (21:28)
[2023-05-12] MEDS: SIMVASTATIN 20 MG TABLET PO (21:28)
[2023-05-12] MEDS: ESCITALOPRAM OXALATE 10 MG TABLET 20 MG PO (21:28)
[2023-05-13 00:41] VITALS: BP 117/58; PULSE 55; RESP 16; TEMP 36.6; O2SAT 96
[2023-05-13 02:17] VITALS: O2SAT 96
[2023-05-13 04:48] VITALS: BP 119/68; PULSE 65; RESP 18; TEMP 36.8; O2SAT 96
[2023-05-13 05:38] LABS: Hemoglobin 11.5 g/dL (12.0-15.0); Immature Platelet Fraction Pct 4.3 % (0.9-11.2); Mean Corpuscular HGB Conc 33.8 g/dl (32-36); Mean Corpuscular Hemoglobin 32.7 pg (26-34); Mean Corpuscular Volume 96.6 fl (80-100); Mean Platelet Volume 10.7 fl (7.4-10.4); Platelet Count Result 128 k/mm3 (150-375); Red Blood Count 3.52 M/mm3 (4.2-5.4); Red Cell Distribution Width 13.8 % (11.5-14.5); White Blood Count 5.2 K/mm3 (4.5-10.0)
[2023-05-13 05:46] LABS: Anion Gap 3 mmol/L (8-16); Blood Urea Nitrogen 9 mg/dL (7-17); Carbon Dioxide 30 mmol/L (22-30); Chloride 102 mmol/L (98-107); Estimated CRCL calculation 79 ml/min; Estimated Glomerular Filt Rate > 60; Glucose 98 mg/dL (65-110); Potassium 3.5 mmol/L (3.4-5.0); Sodium 135 mmol/L (137-145)
[2023-05-13] MEDS: ACETAMINOPHEN 500 MG TABLET 1000 MG PO (05:52)
[2023-05-13 06:17] VITALS: O2SAT 95
[2023-05-13] MEDS: ENOXAPARIN 40 MG/0.4 ML SYRINGE SUB-Q (08:29)
[2023-05-13] MEDS: hydroCHLOROthiazide 25 MG TABLET PO (08:29)
[2023-05-13] MEDS: LETROZOLE (*CHEMO) 2.5 MG TABLET PO (08:29)
[2023-05-13] MEDS: LOSARTAN POTASSIUM 100 MG TABLET PO (08:30)
[2023-05-13] MEDS: NAPROXEN 500 MG TABLET PO (08:30)
--- NOTE | 2023-05-13 10:41 | WPDANESPN ---
Anes - Prog Note Post-Op Date/Time: 05/13/23 10:41 Cardiovascular status: normal Respiratory status: normal Airway patency: baseline Mental status: baseline Post-Op hydration status: normal Vital Signs: Last Vital Signs Temp 36.8 C 05/13/23 04:48 Pulse 65 05/13/23 04:48 Resp 18 05/13/23 04:48 BP 119/68 05/13/23 04:48 Pulse Ox 95 05/13/23 06:17 O2 Del Method Room Air 05/13/23 08:30 O2 Flow Rate 2 05/12/23 11:29 Pain Score (VAS): 09/26 I/O: Intake & Output 05/12/23 05/13/23 05/13/23 23:59 07:59 15:59 Intake Total 740 240 Output Total 400 Balance 340 240 Laboratory Tests 05/13/23 05:07 05/13/23 05:07 05/13/23 05:07 WBC 5.2 RBC 3.52 L Hgb 11.5 L Hct 34.0 L MCV 96.6 MCH 32.7 MCHC 33.8 RDW 13.8 Plt Count 128 L MPV 10.7 H % Immature Plt Fraction 4.3 Sodium 135 L Potassium 3.5 Chloride 102 Carbon Dioxide 30 Anion Gap 3 L BUN 9 D Creatinine 0.80 Estim Creat Clear Calc 79 Estimated GFR > 60 Glucose 98 Calcium 9.0 Post-procedural complaints: none Patient Feedback: Patient satisfied with anesthetic care.
--- NOTE | 2023-05-13 11:10 | PM.DS ---
DS: Admitting Diagnosis Discharge Date 05/13/2023 Admitting Diagnosis Recurrent incarcerated 4 cm umbilical hernia DS: Discharge Diagnosis Discharge Diagnosis (1) Encounter for follow-up examination after completed treatment for conditions other than malignant neoplasm: Code(s): Z09 - Encounter for follow-up examination after completed treatment for conditions other than malignant neoplasm Status: Acute (2) Other specified postprocedural states: Code(s): Z98.890 - Other specified postprocedural states Status: Acute DS: Summary Hospital Course Reason for hospitalization: Recurrent incarcerated umbilical hernia Hospital Course: This is a 62-year-old woman who presented for robotic assisted laparoscopic recurrent umbilical hernia repair on 05/12/2023. Patient was found to have an incarcerated hernia measuring about 4 cm wide. This was incarcerated with omentum and had old mesh scarred within the hernia sac. The omentum was reduced in old mesh was excised. Surgery was uncomplicated, but due to size and complexity of hernia, decision was made to keep patient in the hospital overnight for observation. Pain was controlled with oral and IV pain medications. Her activity was slowly advanced as tolerated. She was also started on a clear liquid diet and this was advanced as tolerated. On postop day 1 her pain was well controlled with oral pain medications. She was remaining hemodynamically stable and tolerating her diet. She was ambulating with minimal assistance. She was discharged on postop day 1. Status at Discharge Functional status at discharge: independent ambulation Overall status at discharge: patient is progressing back to baseline Time Spent with Patient Time attestation: Total time spent providing and/or coordinating discharge services: Time spent: Less than 30 minutes Exam Const: General: comfortable and no acute distress Orientation/consciousness: patient oriented x3 Resp: Effort & Inspection: normal respiratory effort Auscultation: clear to auscultation bilaterally Cardio: Rate: regular rate Rhythm: regular rhythm Heart sounds: S1 normal heart sound present and S2 normal heart sound present GI: Inspection: normal to inspection, non-distended and incision (Intact with glue) GI Palp: Yes Soft to palpation, Yes Tenderness to palpation present (GI) (Incisional and at old hernia site) and No Hernia present Auscultation: normal bowel sounds DS: Data Data Completed and Pending Completed studies during hospitalization: Pending at discharge 05/12/23 08:38 Surgical [PTH] Routine Surgical [PTH] Routine Labs on day of discharge: Labs from last 24 hours 05/13/23 05:07 WBC 5.2 RBC 3.52 L Hgb 11.5 L Hct 34.0 L MCV 96.6 MCH 32.7 MCHC 33.8 RDW 13.8 Plt Count 128 L MPV 10.7 H % Immature Plt Fraction 4.3 Sodium 135 L Potassium 3.5 Chloride 102 Carbon Dioxide 30 Anion Gap 3 L BUN 9 D Creatinine 0.80 Estim Creat Clear Calc 79 Estimated GFR > 60 Glucose 98 Calcium 9.0 Discharge Plan Discharge Patient Disposition: Home, Self-Care Discharge Instructions: DISCHARGE INSTRUCTION SHEET FOR HERNIA, GALLBLADDER AND APPENDIX SURGERIES DR. BEDOYA PATIENT TO TAKE HOME 1. May shower in 24 hours, no soaking in bath x 2weeks. 2. Call office for: Wound increasingly painful or bleeding Vomiting Fever of greater than 101 degrees 3. If no bowel movement for three days, take 1 oz. (30 ml) Milk of Magnesia or MiraLax 17g 1 to 2 times daily. 4. No heavy lifting > 10-15 pounds x 6-8 weeks for hernia repairs and 2 weeks for laparoscopic cholecystectomy or appendectomy. 5. No driving for 3 days or while taking narcotic pain medications. 6. Ice to surgical site for 48 hours (30 min on, then 30 min off). 7. Up walking 10-30 minutes three times per day. 8. Resume previous home medicatio
== END 2023-05-13 11:39 | disposition home or self-care (01) ==
LOC: ANHSURGERY 06:06 → ANH3MED 11:36
PROVIDERS: PCP Family Medicine; Visit Provider Surgery
PROC: (CPT 49616; principal; 2023-05-12 07:30)
DX: K42.9 Umbilical hernia without obstruction or gangrene (principal); I10 Essential (primary) hypertension; E78.5 Hyperlipidemia, unspecified; M06.9 Rheumatoid arthritis, unspecified; G47.30 Sleep apnea, unspecified; F41.9 Anxiety disorder, unspecified; Z85.3 Personal history of malignant neoplasm of breast; Z79.811 Long term (current) use of aromatase inhibitors; E66.01 Morbid (severe) obesity due to excess calories; Z68.42 Body mass index [BMI] 45.0-49.9, adult
CPT/HCPCS: 49616; 49623; 36415; 80048; 85027; 85055; 88300; 88302; A9270; C1781; J0690; J1100; J1170; J1650; J1885; J2250; J2371; J2405; J2704; J3010; J7030; J7120

== ENCOUNTER 2024-07-26 11:11 | Outpatient (CLI) | payer BC, SELFPAY ==
--- NOTE | ~2024-07-26 | XR_ITS ---
Left Knee Technique: AP, lateral, and sunrise views were obtained. Clinical History: Pain Findings: No fracture or dislocation is seen. There is advanced degenerative change of the patellofem oral compartment. There is mild degenerative change of the medial lateral compartments. Soft tissues are unremarkable. No joint effusion is seen. Impression: Degenerative changes, as above, worst at the patellofemoral compartment. Reviewed, dictated and finalized at location . POINTER Impression: Degenerative changes, as above, worst at the patellofemoral compartment.
--- NOTE | ~2024-07-26 | XR_ITS ---
Right Knee Technique: AP, lateral, and sunrise views were obtained. Clinical History: Pain Findings: No fracture or dislocation is seen. There is advanced degenerative change of the patellofem oral compartment. There is mild degenerative change of the medial lateral compartments. Soft tissues are unremarkable. No joint effusion is seen. Impression: Degenerative change, as above, worst at the patellofemoral compartment. Reviewed, dictated and finalized at location . PACK WORKER Impression: Degenerative change, as above, worst at the patellofemoral compartment.
== END 2024-07-26 11:12 | disposition home or self-care (01) ==
LOC: GOSHIMG 11:12
PROVIDERS: PCP Family Medicine; Visit Provider Family Medicine
DX: Z00.00 Encounter for general adult medical examination without abnormal findings (principal); C50.919 Malignant neoplasm of unspecified site of unspecified female breast; M17.12 Unilateral primary osteoarthritis, left knee; M17.11 Unilateral primary osteoarthritis, right knee; G47.33 Obstructive sleep apnea (adult) (pediatric); M06.9 Rheumatoid arthritis, unspecified; M51.369 Other intervertebral disc degeneration, lumbar region without mention of lumbar back pain or lower extremity pain; M86.8X8 Other osteomyelitis, other site; K42.9 Umbilical hernia without obstruction or gangrene; R53.83 Other fatigue; R25.2 Cramp and spasm; Z68.42 Body mass index [BMI] 45.0-49.9, adult; E66.01 Morbid (severe) obesity due to excess calories
CPT/HCPCS: 73562

== ENCOUNTER 2024-12-20 10:59 | Outpatient (CLI) | payer BC, SELFPAY ==
--- NOTE | ~2024-12-20 | XR_ITS ---
Left Hand Technique: PA, oblique, and lateral views were obtained. Clinical History: Carpal tunnel syndrome Findings: No acute fracture or dislocation is seen. Osseous alignment is anatomic. Joint spaces are p reserved. Soft tissues are unremarkable. Impression: Unremarkable left hand. Reviewed, dictated and finalized at location . Impression: Unremarkable left hand.
--- NOTE | ~2024-12-20 | XR_ITS ---
Right Hand Technique: PA, oblique, and lateral views were obtained. Clinical History: Tenosynovitis Findings: No acute fracture or dislocation is seen. Osseous alignment is anatomic. Joint spaces are p reserved. Soft tissues are unremarkable. Impression: Unremarkable right hand. Reviewed, dictated and finalized at location . Impression: Unremarkable right hand.
--- OUTSIDE RECORDS SUMMARY | 2024-12-20 11:54 | XMS_ITS | Encounter Summary ---
Author Organization [facility] Address 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
--- OUTSIDE RECORDS SUMMARY | 2024-12-20 11:54 | XMS_ITS | Encounter Summary ---
Author Organization [facility] Address [address] 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
--- OUTSIDE RECORDS SUMMARY | 2024-12-20 11:54 | XMS_ITS | Clinical Summary ---
Author Organization [facility] Address [address] [place] [address] Care Team Providers Care Feather Edger Name Role Phone Gurjit Edwards MD Primary Care Provider Patrick Brooks MD Unavailable Albert Napoles Unavailable Unavailable Source Comments [facility],non-owned Affiliates and Associated Physician Practices is amultiple site organization consisting of ambulatory clinics and hospital sitesin [place], [place], [place] and [place]. This disclosure is being madepursuant to the Care Everywhere program and may not contain all information available regarding this patient. Last updated 18.[facility] Allergies Active Allergy Reactions Criticality Noted Date Comments Penicillins Urticaria Medium 02/26/2011 Medications * Be aware that medications may not be up to date on this document. Alwaysverify current medications with the patient. escitalopram (Lexapro) 20 MG tablet Take 1 (one) tablet by mouth once daily 2 Active VITAMIN D PO Take 1,000 mg by mouth once daily Active tirzepatide (Mounjaro) 2.5 MG/0.5ML injection Inject 2.5 (two and one-half) mg subcutaneously every 7 days Active cyclobenzaprin e (Flexeril) 10 MG tablet Take 0.5 (one-half) tablet by mouth 3 times daily as needed for Muscle Spasms 15 tablet 2 Active simvastatin (Zocor) 20 MG tablet TAKE 1 TABLET BY MOUTH EVERY DAY 90 tablet 3 Active furosemide (Lasix) 40 MG tablet TAKE 1 TABLET BY MOUTH EVERY DAY NEEDED 90 tablet 3 Active losartan-hydro CHLOROthiazide (Hyzaar) 100-25 MG tablet TAKE 1 TABLET BY MOUTH EVERY DAY 90 tablet 3 Active Active Problems Problem Noted Date Diagnosed Date HTN (hypertension) 06/20/2022 Hyperlipidemia 06/20/2022 Anxiety 06/20/2022 Obesity 06/20/2022 Immunizations Immunization Administration Dates Next Due FLU VACCINE TRI IIV3 SPLIT IM (FLUVIRIN) 016 INFLUENZA VACCINE, CELL CULT URE, QUADR. (FLUCELVAX QUADRIVALENT; 6MO+) (CCIIV4) 05/24/2022 INFLUENZA VACCINE, QUADR. (A FLURIA, FLUZONE QUADRIVALENT; 6MO+) (IIV4) 05/08/2021 INFLUENZA VACCINE, QUADR. (F LUZONE; FLULAVAL; FLUARIX; AFLURIA QUADRIVALENT; 6MO+), 0.5 ML (IIV4) 05/19/2015 Zoster Hzv Vacc Recombinant Inj Im 09/06/2021, Social History Tobacco Use Types Packs/Day Years Used Date Smoking Tobacco: Never Smokeless Tobacco: Never Tobacco Cessation:Counseling Given: Not Answered PHQ-2 Answer Date Recorded PHQ2 TOTAL SCORE 0 06/20/2022 Comments Unknown Sex and Gender Information Value Date Recorded Sex Assigned at Not on file Legal Sex Female 2:40 PM CDT Gender Identity Not on file Sexual Orientation Not on file Last Filed Vital Signs Vital Sign Reading Time Taken Comments Blood Pressure 140/80 06/20/2022 9:08 AM CDT Pulse 80 06/20/2022 9:08 AM CDT Temperature - - Respiratory Rate 20 06/20/2022 9:08 AM CDT Oxygen Saturation 99% 06/20/2022 9:08 AM CDT Inhaled Oxygen Concentration - - Weight 126 kg (277 lb 12.8 oz) 06/20/2022 9:08 A M CDT Height 160 cm (5' 3 ) 06/20/2022 9:08 AM CDT Body Mass Index 49.21 06/20/2022 9:08 AM CDT Plan of Treatment Health Maintenance Due Date Last Done Comments COLOGUARD (AGES 45-75) - COLON CA SCREENING 1961 COLON MONITORING 1961 COLONOSCOPY - COLON CA SCREENING 1961 CT COLONOGRAPHY - COLON CA SCREENING 1961 Colorectal Cancer Screening 1961 FIT - COLON CA SCREENING 1961 FLEX SIG - COLON CA SCREENING 1961 MAMMOGRAM 1961 PAP SMEAR 1961 HIV SCREENING 1976 HEPATITIS C SCREENING 10/10/1979 DTAP/TDAP/TD VACCINES (1 - Tdap) 1980 PNEUMOCOCCAL VACCINE 50+ (1 of 1 - PCV) 2011 Respiratory Syncytial Virus (RSV) Vaccine Pt: or over 60 yrs (1 - Risk 60-74 years 1-dose series) 2021 COVID-19 VACCINE ( season) 2024 05/25/2022, 03/02/2022, 06/14/2021, Additional history exists DEPRESSION SCREENING 08/17/2024 06/20/2022 INFLUENZA VACCINE (Season Ended) 2025 05/24/2022, 05/08/2021, 06/02/2016, Additional history exists SCREENING FOR DIABETES 07/04/2025 07/04/2022 ZOSTER VACCINE Completed 09/06/2021, 06/29/2021 HEPATITIS B VACCINE Aged Out No longe r eligible based on patient's age to complete this topic HIB VACCINE Aged Out No longer eligi ble based on patient's age to complete this topic HPV VACCINE Aged Out No longer eligi ble based on patient's age to complete this topic MENINGOCOCCAL (Group B) VACCINE SHARED DECISION-MAKING Aged Out No longer eligible based on patient's age to complete this topic MENINGOCOCCAL GROUPS A/C/Y/W VACCINE Aged Out No longer eligible based on patient's age to complete this topic Procedures Procedure Name Priority Date/Time Associated Diagnosis Comments COMPREHENSIVE METABOLIC PANEL Routine 07/04/2022 9:00 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 Glucose 97 65 - 99 mg/dL [facility] Comment: Fasting reference interval BUN 16 7 - 25 mg/dL [facility] Creatinine 0.95 0.50 - 1.05 mg/dL [facility] eGFR by Cystatin C 69 > OR = 60 mL/min/1. 73m2 [facility] Comment: The eGFR is based on the CKD-EPI 2020 equation. To calculate the new eGFR from a previous Creatinine or Cystatin C result, go to https://www.kidney.org/professionals/ kdoqi/gfr%5Fcalculator BUN/Creatinine Ratio NOT APPLICABLE 6 - 22 (calc) [facility] Sodium 138 135 - 146 mmol/L [facility] Potassium 3.2(L) 3.5 - 5.3 mmol/L [facility] Chloride 98 98 - 110 mmol/L [facility] CO2 31 20 - 32 mmol/L [facility] Calcium 9.7 8.6 - 10.4 mg/dL [facility] Protein Total 7.6 6.1 - 8.1 g/dL [facility] Albumin 4.4 3.6 - 5.1 g/dL [facility] Globulin Total 3.2 1.9 - 3.7 g/dL (calc) [facility] Albumin/Globuli n Ratio 1.4 1.0 - 2.5 (calc) [facility] Bilirubin Total 1.2 0.2 - 1.2 mg/dL [facility] Alkaline Phosphatase 62 37 - 153 U/L [facility] AST 19 10 - 35 U/L [facility] ALT 13 6 - 29 U/L [facility] Comment: REPORT COMMENT: FASTING:YES Test Performed at: [facility] [address] [place] [address] MARA FREIRE DO,MPH Blood BLOOD SPECIMEN / Unknown 07/04/2022 9:00 AM PRINTED CIRCUIT PHOTOGRAPHER 07/04/2022 9:01 AM PRINTED CIRCUIT PHOTOGRAPHER Gurjit Edwards MD LAB - CHEMISTRY ORDERABLES Tanika wagner Result [facility] [id number] [place] [address] from Last 3 Months or Most Recently Relevant to Health Maintenance Insurance [facility] Care Teams Feather Edger Relationship Specialty Start Date End Date Gurjit Edwards MD PCP - General 03/28/22 Patrick Lynch MD [address] [place] [address] (work) Obstetrics and Gynecology 06/20/22 Albert Napoles 06/20/22
--- OUTSIDE RECORDS SUMMARY | 2024-12-20 11:54 | XMS_ITS | Referral Summary ---
Author Organization [facility] [address] [facility] [place] [address] Care Team Providers Care Coach Professional Athletes Name Role Phone Patrick Villarreal MD Unavailable [phone] Aft, Ciara Gomez MD PhD Unavailable [phone] Sathish Gallo MD Unavailable [phone]- [phone] Stella Wilburn MD Unavailable [phone] Ashanti Recio MD Primary Care Provider + Encounters Date Type Department Care Team Description 10/19/2024 Results Follow-Up [facility] [address] [place] [address] Ruth Eden RN 10/18/2024 Orders Only [facility] [address] [facility] Floor [address] [place] [address] Ruth Eden RN Malignant neoplasm of upper-outer quadrant of right breast in female, estrogen receptor positive (HCC) (Primary Dx); Elevated bilirubin 10/18/2024 2:30 PM FILM HISTORIAN Lab [facility] - Lab Collection [address] [facility] [address] [place] [address] Malignant neoplasm of upper-outer quadrant of right breast in female, estrogen receptor positive (HCC) 10/18/2024 2:00 PM FILM HISTORIAN Office Visit [facility] [address] [facility] [address] [place] [address] Sathish Gallo MD Malignant neoplasm of upper-outer quadrant of right breast in female, estrogen receptor positive (HCC) (Primary Dx) from Last 3 Months Allergies Active Allergy Reactions Criticality Noted Date Comments Penicillins Hives Medium 02/26/2011 Medications calcium carbonate-vitam in D3 400-133.3 mg-unit tabletIndicatio ns:Hypocalcemia Prevention Take 1 tablet by mouth nightly Active furosemide (LASIX) 40 mg tabletIndicatio ns:Edema Take 0.5 tablets (20 mg total) by mouth as needed Active escitalopram (LEXAPRO) 20 mg tabletIndicatio ns:Anxiety with Depression Take 1 tablet (20 mg total) by mouth nightly Active losartan-hydroc hlorothiazide (HYZAAR) 100-25 mg per tabletIndicatio ns:hypertension Take 1 tablet by mouth every morning Active simvastatin (ZOCOR) 20 mg tablet Take 1 tablet (20 mg total) by mouth nightly 2 Active cetirizine 10 mg capsuleIndicati ons:Allergic Rhinitis,Season al Allergic Rhinitis Take 1 capsule by mouth nightly Active fluticasone propionate (FLONASE) 50 mcg/actuation nasal sprayIndication s:Allergic Rhinitis Administer 2 sprays into each nostril every morning Active acyclovir (ZOVIRAX) 400 mg tablet Take 1 tablet (400 mg total) by mouth 2 (two) times a day 3 Active letrozole (FEMARA) 2.5 mg tabletIndicatio ns:Malignant neoplasm of upper-outer quadrant of right breast in female, estrogen receptor positive (HCC),Breast cancer screening, high risk patient Take 1 tablet (2.5 mg total) by mouth daily 30 tablet 11 4 07/14/20 25 Active Active Problems Problem Noted Date Diagnosed Date Personal history of radiation therapy 04/02/2023 Malignant neoplasm of upper- outer quadrant of right breast in female, estrogen receptor positive 10/29/2022 Cancer Staging:Pathologic stage from 01/16/2023:Stage IA(pT1c, pN0(sn), cM0, G1, ER+, ND+, HER2-) - Signed by Stella Wilburn MD on 01/16/2023 Breast cancer screening, high risk patient 04/14 Immunizations Immunization Administration Dates Next Due Influenza, Quadrivalent, Jaylin l Culture-based MDCK, Preservative Free, Antibiotic Free, Intramuscular 05/31/2023,05/24/2022 Influenza, Quadrivalent, Split, Intramuscular Influenza, Quadrivalent, Spl it, Preservative Free, Intramuscular 04/07/2020,05/19/2015 Influenza, Trivalent, Cell C ulture-based MDCK, Preservative Free, Antibiotic Free, Intramuscular 05/24/2022 Influenza, Trivalent, IM (MDV) 06/02/2016 Tdap 07/22/2023 ZOSTER Recombinant 09/06/2021,06/29/2021 Social History Tobacco Use Types Packs/Day Years Used Date Smoking Tobacco: Never Passive Smoke Exposure: Past Smokeless Tobacco: Never Tobacco Cessation:Counseling Given: Not Answered AUDIT-C Answer Date Recorded Q1: How often do you have a drink containing alc ohol? Monthly or less 01/22/2023 Average Number of Drinks Not on file 023 Frequency of Binge Drinking Not on file 03/2023 Personal Safety Answer Date Recorded Have you ever been in or are you currently in a harmful physical or emotional relationship or is someone making you feel afraid or unsafe? Denies 12/16/2022 Comments No Sex and Gender Information Value Date Recorded Sex Assigned at Not on file Legal Sex Female 2:36 AM FILM HISTORIAN Gender Identity Female 06/13/2020 7:59 AM CDT Sexual Orientation Straight 06/13/2020 7: 59 AM CDT Last Filed Vital Signs Vital Sign Reading Time Taken Comments Blood Pressure 131/74 10/18/2024 1:45 PM FILM HISTORIAN Pulse 54 10/18/2024 1:45 PM FILM HISTORIAN Temperature 36.5 C (97.7 F) 10/18/2024 1:45 PM FILM HISTORIAN Respiratory Rate 16 10/18/2024 1:45 PM FILM HISTORIAN Oxygen Saturation 100% 10/18/2024 1:45 PM FILM HISTORIAN Inhaled Oxygen Concentration - - Weight 120.2 kg (265 lb) 10/18/2024 1:45 PM FILM HISTORIAN Height 160 cm (5' 3 ) 10/18/2024 1:45 PM FILM HISTORIAN Body Mass Index 46.94 10/18/2024 1:45 PM FILM HISTORIAN Plan of Treatment Not on file Medical Devices Implanted Type Area Jewelry Sorter Device Identifier Shelf Expiration Date Model / Serial / Lot Bard Peripheral Vascular Ultraclip Bard 17ga 10cm 2 Trigger Permanent Ultrasound [id number] - [id number] Implanted:Qty: 1 on 10/09/2022 at [facility] Right: Breast Bard Peripheral Vascular [id number] / / Bard Peripheral Vascular Ghiatas 20ga 20cm 7cm Beaded Needle Breast Wire Localization [id number] - [id number] Implanted:Qty: 1 on 12/16/2022 at [facility] Bard Peripheral Vascular [id number] / / Procedures Procedure Name Priority Date/Time Associated Diagnosis Comments BILIRUBIN, TOTAL AND DIRECT Routine 10/18/2024 2:19 PM FILM HISTORIAN Malignant neoplasm of upper-outer quadrant of right breast in female, estrogen receptor positive (HCC) EGFR Routine 10/18/2024 2:19 PM FILM HISTORIAN Malignant neoplasm of upper-outer quadrant of right breast in female, estrogen receptor positive (HCC) COMPREHENSIVE METABOLIC PANEL Routine 10/18/2024 2:19 PM FILM HISTORIAN Malignant neoplasm of upper-outer quadrant of right breast in female, estrogen receptor positive (HCC) DIAGNOSTIC MAMMOGRAM BILATERAL W EITAN Schedule Routine, Read Routine (OP Routine) 07/01/2024 12:30 PM FILM HISTORIAN History of breast cancer from Last 3 Months or Most Recently Relevant to Health Maintenance Results * eGFR (10/18/2024 2:19 PM FILM HISTORIAN) eGFR 71 >=60 mL/min/1. 73 m2 Comment: Interpretive Data Reference Interval Normal >/= 90 mL/min/1.73m2 Mildly decreased* 60 - 89 mL/min/1.73m2 Mildly to moderately decreased 45 - 59 mL/min/1.73m2 Moderately to severely decreased 30 - 44 mL/min/1.73m2 Severely decreased 15 - 29 mL/min/1.73m2 Kidney Failure < 15 mL/min/1.73m2 *Relative to young adult level Estimated glomerular filtration rate is determined by the 2020 CKD-EPI equation recommended by the National Kidney Foundation (A Unifying Approach to GFR Estimation: Recommendations of the NKF-ASK Task Force on Reassessing the Inclusion of Race in Diagnosing Kidney Disease, JASN 2020). The CKD-EPI equation should not be used for patients with unstable renal function and has not been validated in children and those over 70. Current interpretive data was last reviewed 2021. Blood 10/18/2024 2:19 PM FILM HISTORIAN 10/18/2024 2:21 PM FILM HISTORIAN Sathish Gallo MD LAB BLOOD ORDERABLES Final Result Performing Organization Address [facility]/ZIP Co de Phone Number [facility] Department of [employer] [place] [address] * (ABNORMAL) Bilirubin, total and direct (10/18/2024 2:19 PM FILM HISTORIAN) Bilirubin, total 1.7(H) 0.1 - 1.2 mg/dL Bilirubin, direct 0.6(H) 0.1 - 0.3 mg/dL [facility] Blood 10/18/2024 2:19 PM FILM HISTORIAN 10/18/2024 2:21 PM FILM HISTORIAN Sathish Gallo MD LAB BLOOD ORDERABLES Final Result [facility] [employer] [place] [address] * (ABNORMAL) Comprehensive metabolic panel (10/18/2024 2:19 PM FILM HISTORIAN) Sodium 138 135 - 145 mmol/L Potassium, pl 3.5 3.3 - 4.9 mmol/L [facility] Chloride 99 97 - 110 mmol/L [facility] CO2 32 22 - 32 mmol/L [facility] Anion gap 7 2 - 15 mmol/L [facility] BUN 14 6 - 25 mg/dL [facility] Creatinine 0.91 0.60 - 1.10 mg/dL [facility] Glucose 92 70 - 199 mg/dL [facility] Comment: Interpretive Data Fasting glucose >/= 126 mg/dl is diagnostic for diabetes. Fasting is defined as no caloric intake for at least 8 hours. Fasting glucose between 100 mg/dl to 125 mg/dl is diagnostic of prediabetes. In a patient with classic symptoms of hyperglycemia or hyperglycemic crisis, a random glucose >/= 200 mg/dl is diagnostic for diabetes. In the absence of unequivocal hyperglycemia, results should be confirmed by repeat testing. The classification and Diagnosis of Diabetes Diabetes Care 202; 46: S19-S40. Current interpretive data was last revised 2022. Calcium 10.1 8.5 - 10.3 mg/dL [facility] Bilirubin, total 1.7(H) 0.1 - 1.2 mg/dL [facility] Protein, pl 7.7 6.5 - 8.5 g/dL [facility] Albumin 4.5 3.5 - 5.0 g/dL [facility] Alk phos 65 40 - 130 Units/L [facility] ALT 16 7 - 45 Units/L [facility] AST 27 10 - 45 Units/L [facility] Blood 10/18/2024 2:19 PM FILM HISTORIAN 10/18/2024 2:21 PM FILM HISTORIAN Sathish Gallo MD LAB BLOOD ORDERABLES Final Result [facility] Department [place] [address] * Diagnostic Mammogram Bilateral W Eitan (07/01/2024 12:30 PM FILM HISTORIAN) Anatomical Region Laterality Modality Breast Bilateral Mammography 07/01/2024 12:3 1 PM FILM HISTORIAN Impressions 07/01/2024 12:31 PM FILM HISTORIAN Right breast conservation therapy changes. OVERALL FINAL ASSESSMENT: BI-RADS Category 2: Benign. RECOMMENDATION: Annual diagnostic mammography is recommended. Electronically signed by: Caitie Smith M.D. Narrative 07/01/2024 12:31 PM FILM HISTORIAN EXAMINATION: DIAGNOSTIC MAMMOGRAM BILATERAL W EITAN HISTORY: 63-year-old female with history of right breast conservation therapy in 2022. COMPARISON: Priors dating back to 2018 TECHNIQUE: Full field digital mammographic views of BOTH breasts were performed, including computer aided detection (CAD) and digital breast tomosynthesis (DBT). BREAST PARENCHYMAL COMPOSITION: There are scattered areas of fibroglandular density. MAMMOGRAM FINDINGS: There is no mass, calcification or architectural distortion suggestive of malignancy within EITHER breast. Right breast conservation therapy changes are present. Procedure Note Caitie Smith MD - 07/01/2024 EXAMINATION: DIAGNOSTIC MAMMOGRAM BILATERAL W EITAN HISTORY: 63-year-old female with history of right breast conservation therapy in 2022. COMPARISON: Priors dating back to 2018 TECHNIQUE: Full field digital mammographic views of BOTH breasts were performed, including computer aided detection (CAD) and digital breast tomosynthesis (DBT). BREAST PARENCHYMAL COMPOSITION: There are scattered areas of fibroglandular density. MAMMOGRAM FINDINGS: There is no mass, calcification or architectural distortion suggestive of malignancy within EITHER breast. Right breast conservation therapy changes are present. IMPRESSION: Right breast conservation therapy changes. OVERALL FINAL ASSESSMENT: BI-RADS Category 2: Benign. RECOMMENDATION: Annual diagnostic mammography is recommended. Electronically signed by: Caitie Smith M.D. Result [facility] Vannessa Avelar IMG MAMMO PROCEDURES Final Result from Last 3 Months or Most Recently Relevant to Health Maintenance Insurance [facility] [place] Care Teams Coach Professional Athletes Relationship Specialty Start Date End Date Ashanti Recio MD [address] [place] [id number] PCP - General Family Medicine 01/07/24 Patrick Villarreal MD [address] [facility] [address] [place] [address] Referring Physician Obstetrics and Gynecology 08/06/22 Aft, Ciara Gomez MD PhD [address] [facility] [place] [address] Surgeon Surgical Oncology 01/16/23 Sathish Gallo MD [address] [facility] [address] [place] [address] Medical Oncologist/Cupola Melting Supervisor Medical Oncology 01/16/23 Stella Wilburn MD [facility] [address] Radiation Oncologist Radiation Oncology 12/15/23
--- OUTSIDE RECORDS SUMMARY | 2024-12-20 11:54 | XMS_ITS ---
Author Organization [facility] 2 Address [address] [facility] [place] [address] Care Team Providers Care Appointment Coordinator Name Role Phone Patrick Villarreal MD Unavailable [phone] Aft, Ciara Gomez MD PhD Unavailable [phone] Sathish Gallo MD Unavailable [phone]- [phone] Stella Wilburn MD Unavailable [phone] Ashanti Recio MD Primary Care Provider + Active Problems Problem Noted Date Diagnosed Date Personal history of radiation therapy 04/02/2023 Malignant neoplasm of upper- outer quadrant of right breast in female, estrogen receptor positive 10/29/2022 Cancer Staging:Pathologic stage from 01/16/2023:Stage IA(pT1c, pN0(sn), cM0, G1, ER+, MN+, HER2-) - Signed by Stella Wilburn MD on 01/16/2023 Breast cancer screening, high risk patient 04/14 Current Treatment and Therapy Plans No current plan information found. Past Treatment and Therapy Plans No past plan information found. Radiation Treatments * Course C1_RT [id number]_202202/02/2023 - 02/26/2023 Treatment Period Energy Fraction Dose Fractions Total Dose Plans Planned PRNE_RT BRST 02/02/2023 - 02/26/2023 267 / ,005 Reference Points Delivered RT BREAST 02/02/2023 - 02/26/2023,
--- OUTSIDE RECORDS SUMMARY | 2024-12-20 11:54 | XMS_ITS | Clinical Summary ---
Author Organization [facility] 2 Address [address] [facility] [place] [address] Care Team Providers Care Technical Programs Manager Name Role Phone Patrick Villarreal MD Unavailable [phone] Aft, Ciara Gomez MD PhD Unavailable [phone] Sathish Gallo MD Unavailable [phone] Stella Wilburn MD Unavailable [phone] Ashanti Recio MD Primary Care Provider + Allergies Active Allergy Reactions Criticality Noted Date [...] from 01/16/2023:Stage IA(pT1c, pN0(sn), cM0, G1, ER+, NM+, HER2-) - Signed by Stella Wilburn MD on 01/16/2023 Breast cancer screening, high risk patient 04/14 Encounters Date Type Department Care Team Description 10/19/2024 Results Follow-Up [facility] [address] [place] [address] Ruth Eden RN 10/18/2024 2:30 PM AIRPORT REPRESENTATIVE Lab [facility] - Lab Collection [address] [place] [address] Floor 5 [place] [address] Malignant neoplasm of upper-outer quadrant of right breast in female, estrogen receptor positive (HCC) 10/18/2024 2:00 PM AIRPORT REPRESENTATIVE Office Visit [facility] [address] [place] [address] 8 [place] [address] Sathish Gallo MD Malignant neoplasm of upper-outer quadrant of right breast in female, estrogen receptor positive (HCC) (Primary Dx) 10/18/2024 Orders Only [facility] [address] [place] [address] Ruth Eden RN Malignant neoplasm of upper-outer quadrant of right breast in female, estrogen receptor positive (HCC) (Primary Dx); Elevated bilirubin from Last 3 Months Immunizations Immunization Administration Dates Next Due Influenza, Quadrivalent, Jaylin l Culture-based MDCK, Preservative Free, Antibiotic Free, Intramuscular 05/31/2023,05/24/2022 Influenza, Quadrivalent, Split, Intramuscular Influenza, Quadrivalent, Spl it, Preservative Free, Intramuscular 04/07/2020,05/19/2015 Influenza, Trivalent, Cell C ulture-based MDCK, Preservative Free, Antibiotic Free, Intramuscular 05/24/2022 Influenza, Trivalent, IM (MDV) 06/02/2016 Tdap 07/22/2023 ZOSTER Recombinant 09/06/2021,06/29/2021 Surgical History Surgery Date Site/Laterality Comments BREAST BIOPSY 10/09/2022 Right HERNIA REPAIR 08/17/2016 - 08/16/2017 umbilical HYSTERECTOMY 08/17/2022 - 08/16/2023 BREAST LUMPECTOMY 12/16/2022 Right Medical History Medical History Date Comments Sleep apnea Hypercholesteremia Hypertension Arthritis Breast cancer (HCC) Family History Medical History Relation Name Comments Breast cancer Maternal Grandmother age un known Adenocarcinoma of breast - (Added by TW Conv) Colon cancer Mother Colon adenocarc inoma - (Added by TW Conv) Ovarian cancer Mother's Sister Breast cancer Sister Adenocarcinoma of breast - (Added by TW Conv) Anesthesia problems Neg Hx Relation Name Status Comments Maternal Grandmother Mother Alive Mother's Sister Sister Alive Social History Tobacco Use Types Packs/Day Years [...] on file Legal Sex Female 2:36 AM AIRPORT REPRESENTATIVE Gender Identity Female 06/13/2020 7:59 AM CDT Sexual Orientation Straight 06/13/2020 7: 59 AM CDT Obstetrics History Last Filed Vital Signs Vital Sign Reading Time Taken Comments Blood Pressure 131/74 10/18/2024 1:45 PM AIRPORT REPRESENTATIVE Pulse 54 10/18/2024 1:45 PM AIRPORT REPRESENTATIVE Temperature 36.5 C (97.7 F) 10/18/2024 1:45 PM AIRPORT REPRESENTATIVE Respiratory Rate 16 10/18/2024 1:45 PM AIRPORT REPRESENTATIVE Oxygen Saturation 100% 10/18/2024 1:45 PM AIRPORT REPRESENTATIVE Inhaled Oxygen Concentration - - Weight 120.2 kg (265 lb) 10/18/2024 1:45 PM AIRPORT REPRESENTATIVE Height 160 cm (5' 3 ) 10/18/2024 1:45 PM AIRPORT REPRESENTATIVE Body Mass Index 46.94 10/18/2024 1:45 PM AIRPORT REPRESENTATIVE Plan of Treatment Health Maintenance Due Date Last Done Comments Colon Cancer Screening-Colonoscopy 1961 Depression Screening 1961 Hepatitis C Screening 1961 Hepatitis B Screening 1979 Regular Well Visit/Exam 18-64 1979 Pneumococcal vaccine <65 (1 of 2 - PCV) 1980 Covid-19 Vaccine (2023-2 5 season) 2024 05/31/2023, 05/25/2022, 03/02/2022, Additional history exists Influenza Vaccine (Season Ended) 2025 05/31/2023, 05/24/2022, 05/24/2022, Additional history exists Breast Cancer Screening-Mammogram 07/01/2025 07/01/2024, 07/01/2023, 08/06/2022, Additional history exists DTaP/Tdap/Td Vaccine (2 - Td or Tdap) 07/22/2033 07/22/2023 Zoster Vaccine Completed 09/06/2021, 06/29/2021 Medical Devices Implanted Type Area Mental Health Assistant Device Identifier Shelf Expiration Date Model / Serial / Lot Bard Peripheral Vascular Ultraclip Bard 17ga 10cm 2 Trigger Permanent Ultrasound [id number] - [id number] Implanted:Qty: 1 on 10/09/2022 at [facility] Right: Breast Bard Peripheral Vascular [id number] / / Bard Peripheral Vascular Francescoiatas 20ga 20cm 7cm Beaded Needle Breast Wire Localization [id number] - [id number] Implanted:Qty: 1 on 12/16/2022 at [facility] Bard Peripheral Vascular [id number] / / Procedures Procedure Name Priority Date/Time Associated Diagnosis Comments BILIRUBIN, TOTAL AND DIRECT Routine 10/18/2024 2:19 PM AIRPORT REPRESENTATIVE Malignant neoplasm of upper-outer quadrant of right breast in female, estrogen receptor positive (HCC) EGFR Routine 10/18/2024 2:19 PM AIRPORT REPRESENTATIVE Malignant neoplasm of upper-outer quadrant of right breast in female, estrogen receptor positive (HCC) COMPREHENSIVE METABOLIC PANEL Routine 10/18/2024 2:19 PM AIRPORT REPRESENTATIVE Malignant neoplasm of upper-outer quadrant of right breast in female, estrogen receptor positive (HCC) DIAGNOSTIC MAMMOGRAM BILATERAL W EITAN Schedule Routine, Read Routine (OP Routine) 07/01/2024 12:30 PM AIRPORT REPRESENTATIVE History of breast cancer from Last 3 Months or Most Recently Relevant to Health Maintenance Results * eGFR (10/18/2024 2:19 PM AIRPORT REPRESENTATIVE) eGFR 71 >=60 mL/min/1. 73 m2 Comment: [...] last reviewed 2021. Blood 10/18/2024 2:19 PM AIRPORT REPRESENTATIVE 10/18/2024 2:21 PM AIRPORT REPRESENTATIVE Sathish Gallo MD LAB BLOOD ORDERABLES Final Result [facility] [place] [address] * (ABNORMAL) Bilirubin, total and direct (10/18/2024 2:19 PM AIRPORT REPRESENTATIVE) Bilirubin, total 1.7(H) 0.1 - 1.2 mg/dL Bilirubin, direct 0.6(H) 0.1 - 0.3 mg/dL [facility] Blood 10/18/2024 2:19 PM AIRPORT REPRESENTATIVE 10/18/2024 2:21 PM AIRPORT REPRESENTATIVE Sathish Gallo MD LAB BLOOD ORDERABLES Final Result Performing Organization Address City/[facility] Co de Phone Number [facility] [place] [address] * (ABNORMAL) Comprehensive metabolic panel (10/18/2024 2:19 PM AIRPORT REPRESENTATIVE) Sodium 138 135 - 145 mmol/L Potassium, pl 3.5 3.3 - 4.9 mmol/L [facility] Chloride 99 97 - 110 mmol/L [facility] CO2 32 22 - 32 mmol/L [facility] Anion gap 7 2 - 15 mmol/L [facility] BUN 14 6 - 25 mg/dL [facility] Creatinine 0.91 0.60 - 1.10 mg/dL [facility] Glucose 92 70 - 199 mg/dL [facility] Comment: Interpretive Data Fasting glucose >/= [...] 2022. Calcium 10.1 8.5 - 10.3 mg/dL [facility] Bilirubin, total 1.7(H) 0.1 - 1.2 mg/dL [facility] Protein, pl 7.7 6.5 - 8.5 g/dL [facility] Albumin 4.5 3.5 - 5.0 g/dL [facility] Alk phos 65 40 - 130 Units/L [facility] ALT 16 7 - 45 Units/L [facility] AST 27 10 - 45 Units/L [facility] Blood 10/18/2024 2:19 PM AIRPORT REPRESENTATIVE 10/18/2024 2:21 PM AIRPORT REPRESENTATIVE us Sathish Gallo MD LAB BLOOD ORDERABLES Final Result [facility] Department [place] [address] * Diagnostic Mammogram Bilateral W Eitan (07/01/2024 12:30 PM AIRPORT REPRESENTATIVE) Anatomical Region Laterality Modality Breast Bilateral Mammography 07/01/2024 12:3 1 PM AIRPORT REPRESENTATIVE Impressions 07/01/2024 12:31 PM AIRPORT REPRESENTATIVE Right breast conservation therapy changes. OVERALL FINAL ASSESSMENT: BI-RADS Category 2: Benign. RECOMMENDATION: Annual diagnostic mammography is recommended. Electronically signed by: Caitie Smith M.D. Narrative 07/01/2024 12:31 PM AIRPORT REPRESENTATIVE EXAMINATION: DIAGNOSTIC MAMMOGRAM BILATERAL W EITAN HISTORY: 63-year-old female with history of right breast conservation therapy in 2022. COMPARISON: Priors dating back to 2019 TECHNIQUE: Full field digital mammographic views of [...] in 2022. COMPARISON: Priors dating back to 2019 TECHNIQUE: Full field digital mammographic views of [...] recommended. Electronically signed by: Caitie Smith M.D. Vannessa Avelar HEAD ANIMAL TRAINER IMG MAMMO PROCEDURES Final Result from Last 3 Months or Most Recently Relevant to Health Maintenance Insurance [facility] MessageMe RI MessageMe RI Care Teams Technical Programs Manager Relationship Specialty Start Date End Date Ashanti Recio MD [address] [place] [id number] PCP - General Family Medicine 01/07/24 Patrick Villarreal MD [address] [id number] Referring Physician Obstetrics and Gynecology 08/06/22 Aft, Ciara Gomez MD PhD [address] [place] [address] Surgeon Surgical Oncology 6/2/23 Sathish Gallo MD [address] [facility] [address] [place] [id number] Medical Oncologist/Vein Pumper Medical Oncology 01/16/23 Stella Wilburn MD [address] [place] [address] Radiation Oncologist Radiation Oncology 12/15/23
--- OUTSIDE RECORDS SUMMARY | 2024-12-20 11:54 | XMS_ITS | Encounter Summary ---
Author Organization [facility] Address [address] [place] [address] Care Team Providers Care Production Control Manager Name Role Phone Unavailable Primary Care Provider Unavailabl e Encounter Details Date Type Department Care Team (Late st Contact Info) Description 03/18/2001 Outpatient Historical [facility], [address] Matt Aaron MD Social History Tobacco Use Types Packs/Day Years Used Date Smoking Tobacco: Never Assessed Comments Unknown Sex and Gender Information Value Date Recorded Sex Assigned at Not on file Legal Sex Female 3:57 AM PATTERN SHOP SUPERVISOR Gender Identity Not on file Sexual Orientation Not on file documented as of this encounter Plan of Treatment Not on file documented as of this encounter Visit Diagnoses Not on filedocumented in this encounter
--- OUTSIDE RECORDS SUMMARY | 2024-12-20 11:54 | XMS_ITS | Encounter Summary ---
Author Organization [facility] Address [address] [place] [address] Care Team Providers Care Scaleman Name Role Phone Unavailable Primary Care Provider Unavailabl e Encounter Details Date Type Department Care Team (Late st Contact Info) Description 12/31/2000 Outpatient Historical [facility],NON-PATIENT Matt Aaron MD Social History Tobacco Use Types Packs/Day Years Used Date Smoking Tobacco: Never Assessed Comments Unknown Sex and Gender Information Value Date Recorded Sex Assigned at Not on file Legal Sex Female 3:57 AM LABEL PINKER Gender Identity Not on file Sexual Orientation Not on file documented as of this encounter Plan of Treatment Not on file documented as of this encounter Visit Diagnoses Not on filedocumented in this encounter
--- OUTSIDE RECORDS SUMMARY | 2024-12-20 11:54 | XMS_ITS | Encounter Summary ---
Author Organization [facility] Address [address] 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
--- OUTSIDE RECORDS SUMMARY | 2024-12-20 11:55 | XMS_ITS | Encounter Summary ---
Author Organization [facility] Address 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
--- OUTSIDE RECORDS SUMMARY | 2024-12-20 11:55 | XMS_ITS | Encounter Summary ---
Author Organization [facility] Address [address] [place] [address] Care Team Providers Care Systems Librarian Name Role Phone Gurjit Edwards MD Primary Care Provider Unavaila ble Patrick Lynch MD Unavailable [phone] Albert Napoles Unavailable Unavailable Encounter Details Date Type Department Care Team (Late st Contact Info) Description 06/14/2021 Lab Requisition [facility] Care DermPath Lab [address] [place] [id number] Leland Hogue MD [address] [place] [address] Social History Tobacco Use Types Packs/Day Years [...] Diagnoses Not on filedocumented in this encounter Care Teams Systems Librarian Relationship Specialty Start Date End Date Gurjit Edwards MD PCP - General 03/28/22 Patrick Lynch MD [address] [place] [address] Obstetrics and Gynecology 06/20/22 Albert Napoles 06/20/22 documented as of this encounter
--- OUTSIDE RECORDS SUMMARY | 2024-12-20 11:55 | XMS_ITS | Encounter Summary ---
Author Organization [facility] Address 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
--- OUTSIDE RECORDS SUMMARY | 2024-12-20 11:55 | XMS_ITS | Clinical Summary ---
Author Organization [facility] Address [address] 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
--- OUTSIDE RECORDS SUMMARY | 2024-12-20 11:55 | XMS_ITS | Encounter Summary ---
Author Organization [facility] Address [address] [place] [address] Care Team Providers Care Head Up Operator Name Role Phone Gurjit Edwards MD Primary Care Provider Unavaila Patrick Mcginnis MD Unavailable [phone] Albert Napoles Unavailable Unavailable Encounter Details Date Type Department Care Team (Late st Contact Info) Description 06/14/2021 Lab Requisition [facility] Care DermPath Lab [address] [place] [id number] Leland Hogue MD [address] [place] [address] Social History Tobacco Use Types Packs/Day Years Used Date Smoking Tobacco: Never Assessed Comments Unknown Sex and Gender Information Value Date Recorded Sex Assigned at Not on file Legal Sex Female 2:40 PM CDT Gender Identity Not on file Sexual Orientation Not on file documented as of this encounter Plan of Treatment Not on file documented as of this encounter Procedures Procedure Name Priority Date/Time Associated Diagnosis Comments DERMATOPATHOLOGY Routine 06/13/2021 3:33 AM CDT documented in this encounter Results * DERMATOPATHOLOGY (06/13/2021 3:33 AM CDT) Case Report Dermatopathology Report Case: [id number] Authorizing Provider: Leland Hogue MD Collected: 06/13/2021 03:33 AM Ordering Location: [facility] Derm[facility] Lab Received: 06/14/2021 07:16 AM Pathologist: Yesica Giang MD Specimen: Skin, left upper back 11:26 AM T DERMATOPATHOLOGY LABORATORY Final Diagnosis Specimen A. SKIN, left upper back: EPIDERMOID CYST (L72.0) APPROXIMATES MARGIN 11:26 AM CDT DERMATOPATHOLOGY LABORATORY Clinical History E. Cyst. Path# [id number]. 11:26 AM CDT DERMATOPATHOLOGY LABORATORY Gross Description Specimen A: Received is one formalin filled container labeled with the patient's name and designated left upper back. The specimen consists of a [id number] piece of skin. The specimen is serially sectioned and a franchise sales representative section is submitted in cassette 1. Jar 1. 11:26 AM T DERMATOPATHOLOGY LABORATORY Microscopic Description Specimen A. SKIN, left upper back: Within the dermis, there is a space lined by epithelium that resembles normal epidermis and the infundibular portion of the hair follicle. This lesion approximates the margin of the specimen. 11:26 AM T DERMATOPATHOLOGY LABORATORY Disclaimer An external and internal positive and negative controls are appropriate for the histochemical, immunohistochemical and immunofluorescence stain(s) in this case (if any), except where stated explicitly. The performance characteristics of the stain(s) cited in this report were developed and its performance characteristic determined by the Dermatopathology Laboratory at [facility], directed by Dr. Carlito Maher. These tests need not be, and therefore are not, approved by the [place] Food and Drug Administration. The tests are used for clinical purposes. Billing Codes Specimen Charges Stain Charges 07269 1 11:26 AM CDT DERMATOPATHOLOGY LABORATORY Embedded Images 11:26 AM CDT DERMATOPATHOLOGY LABORATORY Pathology/Cytolo gy TISSUE SPECIMEN FROM SKIN / Unknown 06/13/2021 3:33 AM CDT 06/14/2021 7:16 AM CDT Leland Hogue MD LAB - PATHOLOGY/CYTOLOGY ORDER MART Final Result DERMATOPATHOLOGY LABORATORY [facility] - Department of Dermatology [facility] [address] [place] [address], [address] [phone] documented in this encounter Visit Diagnoses Not on filedocumented in this encounter Care Teams Head Up Operator Relationship Specialty Start Date End Date Gurjit Edwards MD PCP - General 03/28/22 Patrick Lynch MD [address] [place] [address] Obstetrics and Gynecology 06/20/22 Albert Napoles 06/20/22 documented as of this encounter
--- OUTSIDE RECORDS SUMMARY | 2024-12-20 11:55 | XMS_ITS | Encounter Summary ---
Author Organization [facility] Address 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
== END 2024-12-20 11:00 | disposition home or self-care (01) ==
PROVIDERS: PCP Family Medicine; Visit Provider Plastic Surgery
DX: G56.03 Carpal tunnel syndrome, bilateral upper limbs (principal); M65.939 Unspecified synovitis and tenosynovitis, unspecified forearm
CPT/HCPCS: 73130